=== PATIENT | male | born 1980 | race Caucasian/White ===

== ENCOUNTER 2021-02-23 16:37 | Emergency (ER) | payer MEDICAID, SELFPAY ==
[2021-02-23 17:28] VITALS: BP 164/95; PULSE 96; RESP 18; O2SAT 95; BMI 26.6
--- NOTE | 2021-02-23 18:08 | ED_ITS ---
HPI - Alcohol General Chief Complaint: ETOH/Substance Use Stated Complaint: detox Time Seen by Provider: 02/23/21 18:06 Source: patient Mode of arrival: ambulatory Limitations: other (agitated) History of Present Illness HPI narrative: hx of ETOH withdrawal seizures, can you just give me something to fucking stop these shakes. complaint: alcohol withdrawal Last drink: Hours (ago) (4) Amount of alcohol consumed: 2 nips Chronic alcohol use: Yes Previous visits for alcohol intoxication: Yes Recent trauma: No Associated symptoms: nausea and tremors Treatments prior to arrival: none Related Data Previous Rx's Medication Instructions Recorded chlordiazepoxide HCl See Rx Instructions .ROUTE 02/23/21 .COMPLEX PRN #30 cap magnesium oxide 400 mg PO DAILY #30 tab 02/23/21 Allergies Allergy/AdvReac Type Severity Reaction Status Date / Time morphine Allergy Unresponsiv Verified 02/23/21 17:34 e Review of Systems Review of Systems: Constitutional : No Weight loss, No Fever, pos Chills, No Fatigue, No Malaise ENT/Mouth : No sore throat, No Rhinorrhea Eyes: No Eye Pain, No Swelling, No Redness Cardiovascular : No Chest Pain, No SOB, No Dyspnea on Exertion, No Orthopnea, No Edema, No Palpitations Respiratory : No Cough, No Sputum, No Wheezing Gastrointestinal : pos Nausea, No Vomiting, No Diarrhea, No Constipation, No abdominal Pain, No Hematochezia, No Melena Genitourinary : No Dysuria, No Urinary Frequency, No Hematuria, Musculoskeletal : No joint pain, No Myalgias, No Joint Swelling Skin : No Skin Lesions, No rash Neuro : No Weakness, No Numbness, No Dizziness, No Headache, pos tremors Psych : No Anxiety/Panic, No Depression Heme/Lymph: No Bruising, No Bleeding,No Lymphadenopathy Endocrine : No Polyuria, No Polydipsia All other systems reviewed and are negative [facility] Past Medical History Attestation statement: The following information was validated with the patient. Medical History Alcohol abuse Alcohol withdrawal seizure Shoulder pain Social History Social History (Updated 02/23/21 @ 18:33 by Tameka Eason DO) Alcohol intake: current Patient Tobacco Use Status: Current someday Tobacco user Substance Use Type: Crack/Cocaine Advance Directives: No Advance Directives Information Provided: No Physical Exam Vital Signs: Vital Signs: Last Vital Signs Pulse 70 02/23/21 20:00 Resp 18 02/23/21 20:00 BP 157/96 H 02/23/21 19:09 Pulse Ox 100 02/23/21 20:00 Body Mass Index 26.6 Appearance: Alert. Oriented X3. Anxious and agitated, no acute distress. Initially no tremors when the patient was at the bedside alone but when I went t o see him he started shaking and talking loudly using profane terms. Eyes: Pupils equal, round and reactive to light. ENT: Pharynx mild dry mouth Neck: Normal inspection. Neck supple. CVS: Normal heart rate and rhythm. Pulses normal. Respiratory: No respiratory distress. Breath sounds normal. Abdomen: Soft and non-tender. Skin: Skin warm and dry. Normal skin color. Normal skin turgor. Extremities: No lower extremity edema. No calf ttp Neuro: Oriented X 3. No motor deficit. No sensory deficit. Course Course Course Narrative: HR 77 tolerating PO quite a bit of food actually, VS stable, tremors resolved currently asleep. notified by recovery coaches that there is room at [facility] tomorrow but no detox beds tonight, I did let the recovery coaches knows that I would prescribe a librium taper - patient was sound asleep and resting when he realized that we were not going to admit him after appropriate care and resuscitation he started to become agitated and intentionally shaking. eating crackers has no shakes when he brings the food to his mouth at all doing quite well when I went to talk to him he now states he his homeless and now needs a place to stay and doesn't want to leave. moveman aware at this time he is medically cleared MDM - Alcohol MDM Narrative Medical decision making narrative: 41 male with hx of ETOH abuse and withdrawals comes in with c/o tremor and worried he will have a seizure at this time will need labs, IVF< IV ativan and PO librium, discussed with recovery coaches as well for possible detox as he is interested in going to detox today. His tremors initially seemed not present when he was alone then when I went to the bedside they were present and he repeatedly said get me the fucking medications. Lab Data Result diagrams: 02/23/21 18:24 07/07/21 18:24 Labs: Lab Results 02/23/21 02/23/21 02/23/21 Range/Units 18:24 18:24 18:24 WBC 8.0 (4.8-10.8) X10*3/uL RBC 4.75 (4.60-5.80) X10*6/uL Hgb 14.8 (14.0-18.0) g/dl Hct 43.1 (42-52) % MCV 90.7 (80-98) fL MCH 31.2 (27.0-33.0) pg MCHC 34.3 (31.0-36.0) g/dl RDW 13.7 (11.0-16.0) % Plt Count 160 (160-400) X10*3/uL MPV 9.4 (9.4-12.4) fL Immature Gran % (Auto) 0.5 H (0.0-0.4) % Neut % (Auto) 78.5 H (45-73) % Lymph % (Auto) 14.3 L (20-40) % [place] % (Auto) 5.8 (2-11) % Eos % (Auto) 0.4 (0-4) % Baso % (Auto) 0.5 (0-2) % Lymph # (Auto) 1.1 L (1.2-4.9) X10*3/uL [place] # (Auto) 0.5 (0.1-1.2) X10*3/uL Eos # (Auto) 0.0 (0.0-0.4) X10*3/uL Baso # (Auto) 0.0 (0.0-0.2) X10*3/uL Abs Immat Gran (auto) 0.04 H (0.00-0.03) X10*3/uL Absolute Neuts (auto) 6.3 (2.0-8.3) X10*3/uL Absolute Nucleated RBC 0.000 (0.0-0.012) X10*3/uL Nucleated RBC % (auto) 0.0 (0.0-0.2) /100WBC Sodium 141 (135-145) mmol/L Potassium 4.0 (3.3-5.1) mmol/L Chloride 103 (96-108) mmol/L Carbon Dioxide 28 (22-29) mmol/L Anion Gap 14 (12-20) BUN 9 (9-16) mg/dL Creatinine 0.96 (0.5-1.4) mg/dL Estim Creat Clear Calc 100.2 Estimated GFR > 60 Random Glucose 95 (60-115) mg/dL Calcium 9.6 (8.4-10.2) mg/dL Magnesium 1.3 L* (1.6-2.6) mg/dL Total Bilirubin 0.7 (0.0-1.0) mg/dL Direct Bilirubin 0.3 (0.0-0.5) mg/dL AST 113 H (5-37) U/L ALT 108 H (0-40) U/L Alkaline Phosphatase 67 (39-117) U/L Total Protein 7.4 (6.5-8.0) g/dL Albumin 4.5 (3.5-5.0) g/dL Ethyl Alcohol mg/dL COVID-19 (IVANIA) (Negative) COVID-19 Clin Com 02/23/21 02/23/21 Range/Units 18:24 18:24 WBC (4.8-10.8) X10*3/uL RBC (4.60-5.80) X10*6/uL Hgb (14.0-18.0) g/dl Hct (42-52) % MCV (80-98) fL MCH (27.0-33.0) pg MCHC (31.0-36.0) g/dl RDW (11.0-16.0) % Plt Count (160-400) X10*3/uL MPV (9.4-12.4) fL Immature Gran % (Auto) (0.0-0.4) % Neut % (Auto) (45-73) % Lymph % (Auto) (20-40) % [place] % (Auto) (2-11) % Eos % (Auto) (0-4) % Baso % (Auto) (0-2) % Lymph # (Auto) (1.2-4.9) X10*3/uL [place] # (Auto) (0.1-1.2) X10*3/uL Eos # (Auto) (0.0-0.4) X10*3/uL Baso # (Auto) (0.0-0.2) X10*3/uL Abs Immat Gran (auto) (0.00-0.03) X10*3/uL Absolute Neuts (auto) (2.0-8.3) X10*3/uL Absolute Nucleated RBC (0.0-0.012) X10*3/uL Nucleated RBC % (auto) (0.0-0.2) /100WBC Sodium (135-145) mmol/L Potassium (3.3-5.1) mmol/L Chloride (96-108) mmol/L Carbon Dioxide (22-29) mmol/L Anion Gap (12-20) BUN (9-16) mg/dL Creatinine (0.5-1.4) mg/dL Estim Creat Clear Calc Estimated GFR Random Glucose (60-115) mg/dL Calcium (8.4-10.2) mg/dL Magnesium (1.6-2.6) mg/dL Total Bilirubin (0.0-1.0) mg/dL Direct Bilirubin (0.0-0.5) mg/dL AST (5-37) U/L ALT (0-40) U/L Alkaline Phosphatase (39-117) U/L Total Protein (6.5-8.0) g/dL Albumin (3.5-5.0) g/dL Ethyl Alcohol < 10 mg/dL COVID-19 (IVANIA) Negative (Negative) COVID-19 Clin Com See Note ECG Data Attestation: I personally reviewed and interpreted this ECG as follows: ECG interpretation date: 02/23/21 ECG interpretation time: 18:28 Interpretation: Rate: 81 Rhythm: NSR Ramer: left Normal P waves. Normal JAMEY. Normal QRS complex. ST T wave normal no DELORES artifact noted qTC: normal prior studies: no acute ischemia The study has been interpreted contemporaneously by me. . Discharge Plan Discharge Clinical Impression: Hypomagnesemia Alcohol withdrawal syndrome Qualifiers: Complication of substance-induced condition: uncomplicated Qualified Code(s): F10.230 - Alcohol dependence with withdrawal, uncomplicated Patient Disposition: Home, Self-Care Instructions: Alcohol Withdrawal (ED), Hypomagnesemia (ED) Additional Instructions: return to ED for any worsening symptoms or concerns please follow up with [facility] Prescriptions: New chlordiazepoxide HCl 25 mg capsule See Rx Instructions .ROUTE .COMPLEX PRN (Reason: alcohol withdrawal) Qty: 30 RF: 0 magnesium oxide 400 mg (241.3 mg magnesium) tablet 400 mg PO DAILY Qty: 30 RF: 0
--- NOTE | 2021-02-23 18:16 | ECG_ITS ---
Test Reason : ALCOHOL ABUSE Blood Pressure : / mmHG Vent. Rate : 081 BPM Atrial Rate : 081 BPM P-R Int : 184 ms QRS Dur : 092 ms QT Int : 360 ms P-R-T Axes : 038 -13 026 degrees QTc Int : 418 ms Normal sinus rhythm Normal ECG No previous ECGs available Referred By: Tameka Eason Electronically Signed By:JHONATAN SEN
[2021-02-23] MEDS: 0.9 % Sodium Chloride 1,000 ML 999 ML IVCONT (18:32)
[2021-02-23] MEDS: LORazepam 2 MG/ML VIAL IVPUSH (18:32)
[2021-02-23] MEDS: Thiamine HCL 100 MG TABLET PO (18:32)
[2021-02-23 18:33] LABS: MANUAL DIFF FLAG NO
[2021-02-23 18:35] LABS: Basophils Percent Auto 0.5 % (0-2); Eosinophils Percent Auto 0.4 % (0-4); Hematocrit 43.1 % (42-52); Hemoglobin 14.8 g/dl (14.0-18.0); Imm Gran Abs Auto 0.04 X10*3/uL (0.00-0.03); Imm Gran Pct Auto 0.5 % (0.0-0.4); Lymphocytes Absolute Auto 1.1 X10*3/uL (1.2-4.9); Lymphocytes Percent Auto 14.3 % (20-40); Mean Corpuscular HGB Conc 34.3 g/dl (31.0-36.0); Mean Corpuscular Hemoglobin 31.2 pg (27.0-33.0); Mean Corpuscular Volume 90.7 fL (80-98); Mean Platelet Volume 9.4 fL (9.4-12.4); Monocytes Absolute Auto 0.5 X10*3/uL (0.1-1.2); Monocytes Percent Auto 5.8 % (2-11); Neutrophils Absolute Auto 6.3 X10*3/uL (2.0-8.3); Neutrophils Percent Auto 78.5 % (45-73); Platelet Count 160 X10*3/uL (160-400); Red Blood Count 4.75 X10*6/uL (4.60-5.80); Red Cell Distribution Width 13.7 % (11.0-16.0)
[2021-02-23] MEDS: chlordiazePOXIDE HCl 25 MG CAPSULE 50 MG PO (18:36)
[2021-02-23 18:52] LABS: COVID-19 Test Negative (Negative)
[2021-02-23 19:00] LABS: Anion Gap 14 (12-20); Blood Urea Nitrogen 9 mg/dL (9-16); Calcium 9.6 mg/dL (8.4-10.2); Carbon Dioxide 28 mmol/L (22-29); Chloride 103 mmol/L (96-108); Creatinine Clr Calc Pharmacy 100.2; Estimated Glomerular Filt Rate > 60; Ethanol < 10 mg/dL; Glucose Random 95 mg/dL (60-115); Sodium 141 mmol/L (135-145)
[2021-02-23 19:09] VITALS: BP 157/96; PULSE 96; RESP 18; O2SAT 99
[2021-02-23 19:09] LABS: Alanine Aminotransferase 108 U/L (0-40); Albumin Level 4.5 g/dL (3.5-5.0); Alkaline Phosphatase 67 U/L (39-117); Aspartate Amino Transferase 113 U/L (5-37); Bilirubin Direct 0.3 mg/dL (0.0-0.5); Bilirubin Total 0.7 mg/dL (0.0-1.0); Magnesium 1.3 mg/dL (1.6-2.6); Total Protein 7.4 g/dL (6.5-8.0)
[2021-02-23] MEDS: Magnesium Sulfate/H2O 2 GM/50 ML PIGGYBACK IV (19:31)
[2021-02-23 20:00] VITALS: PULSE 70; RESP 18; O2SAT 100
--- NOTE | 2021-02-23 20:16 | MHC.RECOVSUP ---
? Reason for consult Recovery Support o Current location: ED16 o Identified substance use concern: Alcohol - Withdrawal - Seeking ATS (detox) - Support ? Intervention: o Community resources provided o Harm reduction discussion ? Plan: o Follow up tomorrow o Patient to follow up with [facility] after discharge ? Additional information: Patient interested in intermediate school teacher program.. Patient is not medically.. Patient would be followed up on tomorrow..
--- NOTE | 2021-02-23 20:46 | MHC.RECOVSUP ---
Patient is medically but no Detox bed available.. Patient was given resources to go to tomorrow to assists Patient tomorrow in finding a bed.
[2021-02-23 21:10] VITALS: BP 138/82; PULSE 81; RESP 18; O2SAT 100
== END 2021-02-23 21:34 | disposition home or self-care (01) ==
PROVIDERS: Emergency Provider Emergency Medicine; PCP Family Medicine
DX: F10.230 Alcohol dependence with withdrawal, uncomplicated (principal); Y90.0 Blood alcohol level of less than 20 mg/100 ml; E83.42 Hypomagnesemia; Z59.0 Homelessness; Z20.822 Contact with and (suspected) exposure to COVID-19
CPT/HCPCS: 36415; 80048; 80076; 82077; 83735; 85025; 87635; 93005; 96361; 96365; 96366; 96375; 99284; 99285; J2060; J3475

== ENCOUNTER 2025-05-30 15:23 | Emergency (ER) | payer MEDICAID, SELFPAY ==
--- NOTE | ~2025-05-30 | XR_ITS ---
CLINICAL HISTORY: pain 3 views left humerus: Comparison: None Findings: No fractures or dislocations. No significant arthritic change No radiopaque foreign body Normal visualized left chest Impression: Unremarkable left shoulder. No signs of acute skeletal trauma This document has been electronically signed by: Elvis Red MD on 05/30/2025 16:54:53
--- NOTE | ~2025-05-30 | XR_ITS ---
CLINICAL HISTORY: pain 2 views left forearm Comparison: None Findings: No fractures or dislocations No joint effusion No significant arthritic change No radiopaque foreign body Impression: Normal left forearm. This document has been electronically signed by: Elvis Red MD on 05/30/2025 16:50:50
[2025-05-30 15:28] VITALS: BP 128/83; PULSE 91; RESP 18; TEMP 36.6; O2SAT 95; BMI 25.1
--- NOTE | 2025-05-30 15:28 | ED_ITS ---
HPI - General Adult General Chief complaint: Extremity Injury, Upper Stated complaint: left arm and shoulder pain Time Seen by Provider: 05/30/25 16:24 Source: patient Mode of arrival: ambulatory Limitations: no limitations History of Present Illness ED Provider: Patria Galindo PA-C HPI narrative: Patient is a 45 year old assigned male at with a history of alcohol use / abuse presenting to the emergency department today with left shoulder and bicep pain. Patient states that he has been having issues with his left shoulder / arm for awhile and he wants to get an MRI to look at the muscles. Patient denies any other complaints at this time. Onset (ago): week(s) (2) Location: left and upper extremity Related Data Previous Rx's ?Medication ?Instructions ?Recorded chlordiazepoxide HCl 25 mg capsule See Rx Instructions .Route 02/23/21 .COMPLEX PRN alcohol withdrawal #30 caps magnesium oxide 400 mg (241.3 mg 400 mg PO DAILY #30 t abs 02/23/21 magnesium) tablet cyclobenzaprine 5 mg tablet 5 mg PO TID PRN shoulder p ain 7 05/30/25 days #21 tabs prednisone 20 mg tablet 40 mg (2 x 20 mg) PO DAILY C OPD 05/30/25 exacerbation 5 days #10 tabs Allergies Allergy/AdvReac Type Severity Reaction Status Date / Time morphine Allergy Unresponsiv Verified 05/30/25 15:30 e Review of Systems Constitutional: Constitutional: Reports as per HPI Eyes: Eyes: Reports as per HPI ENT: Reports as per HPI Cardiovascular: Cardiovascular: Reports as per HPI Respiratory: Respiratory: Reports as per HPI Gastrointestinal: Gastrointestinal: Reports as per HPI Genitourinary: Genitourinary: Reports as per HPI Musculoskeletal: Musculoskeletal: Reports as per HPI Integumentary/Breasts: Skin/Breast: Reports as per HPI Neurologic: Reports as per HPI Psychiatric: Psychiatric: Reports as per HPI Endocrine: Endocrine: Reports as per HPI Hematologic/Lymphatic: Hematologic/Lymphatic: Reports as per HPI Allergic/Immunologic: Allergic/Immunologic: Reports as per HPI PMF Past Medical History Attestation statement: The following information was validated with the patient. Source: old records reviewed and nursing notes reviewed Medical History Alcohol withdrawal seizure Alcohol abuse Shoulder pain Social History Social History Alcohol intake: current Patient Tobacco Use Status: Current someday Tobacco user Substance Use Type: Crack/Cocaine Advance Directives: No Advance Directives Information Provided: Yes Do you have a plan to hurt others: No Plan Physical Exam ED Vital Signs: Vital Signs - 24 hr 05/30/25 15:28 05/30/25 16:57 Temperature 97.8 F 97.8 F Pulse Rate 91 91 Respiratory Rate 18 18 Blood Pressure 128/83 128/83 Pulse Oximetry 95 95 Oxygen Delivery Method Room Air Room Air BMI result Body Mass Index 25.1 Const General: cooperative, no acute distress, alert and awake Nutritional Appearance: well nourished Orientation/consciousness: patient oriented x3 HENMT Head: Yes normal to inspection and Yes atraumatic Ears: hearing grossly normal bilaterally and external ears normal General nose exam: Normal external nose present, no nasal discharge noted and no epistaxis Face and sinus: Yes normal facial exam, No abrasion and No laceration Mouth: Normal oral and palatal mucosa present, no drooling and no muffled voice Eyes General: appearance normal, both eyes and all related structures Periorbital: periorbital findings normal Eyelids: Yes eyelids normal Conjunctivae: conjunctivae normal Pupils: Equal, round and reactive pupils present EOM: EOMs intact bilaterally Neck Neck: Yes normal visual inspection and Yes full ROM Resp Effort & Inspection: normal respiratory effort and able to speak in complete sentences Neuro General: patient oriented x3, moves all extremities and CN's II-XI intact bilaterally Cranial nerves: Yes Equal, round and reactive pupils present Cognition (Neuro): normal cognition Extrem General: Yes normal to inspection, Yes full ROM and Yes capillary refill normal Psych Appearance: grossly normal Mental Status: mental status grossly normal Affect: normal affect Attitude: cooperative Thought process: Normal thought process present Thought content: Normal thought content present Insight: Good insight present (Psych) Course Course Course Narrative: This is a Rapid Medical Examination (RME) performed by Darshan Shields PA-C in triage. Full HPI, ROS, assessment and treatment plan per primary provider in the Main ED. Hx: 45 yo F here for eval of LUE pain x weeks. hx of right shoulder dislocation 5 yrs ago, since this time has been favoring his LUE. he believes his bicep/tricep/shoulder blade have completely torn. states his arm is not connected. states all of his nerves are exposed. PE/vitals: odor of etoh to breath. FROM intact to LUE. no deformities. Plan: imaging Medications Administered Discontinued Medications Generic Name Dose Route Start Last Admin Trade Name Eun PRN Reason Stop Dose Admin Cyclobenzaprine HCl 5 mg 05/30/25 16:34 05/30/25 16:46 Cyclobenzaprine Hcl 5 Mg Tablet PO 05/30/25 16:35 5 mg ONCE ONE Administration Ketorolac Tromethamine 15 mg 05/30/25 16:34 05/30/25 16:47 Ketorolac Tromethamine 15 Mg/Ml Vial IM 05/30/25 16:35 15 mg ONCE ONE Administration Prednisone 20 mg 05/30/25 16:34 05/30/25 16:46 Prednisone 20 Mg Tablet PO 05/30/25 16:35 20 mg ONCE ONE Administration Medical Decision Making Medical Decision Making MDM Narrative: Patient is a 45 year old assigned male at with a history of alcohol use / abuse presenting to the emergency department today with left shoulder and bicep pain. Patient's physical exam was as noted in the physical exam portion of this note unremarkable. Patient's left forearm and shoulder x-rays showed no acute process. I am suspicious the patient has a rotator cuff vs. bicep tendon injury that is chronic in nature and he is having an acute exacerbation of it. I explained to the patient that I cannot order an emergent MRI for a non emergent issue such as his shoulder / bicep pain. I explained my physical exam findings as well as all test results to the patient. I answered all questions asked by the patient. I stressed the importance of the patient taking his medication as directed (either prescribed or as the over the counter packaging recommends). I stressed the importance of the patient following up with his primary care provider and the orthopedic team. I stressed the importance of the patient returning to the emergency department immediately if his symptoms were to worsen or if he were to develop any dizziness, shortness of breath, difficulty breathing, chest pain, blurry vision, loss of vision, nausea, vomiting, abdominal pain, fever, chills, back pain, or any other complaints. Patient verbalized agreement and understanding with this treatment plan and discharge. Differential Diagnosis Differential Diagnoses: The differential diagnosis associated with the presentation includes LUE pain LUE strain LUE Sprain Rotator cuff injury Bicep tendon injury Admission/Observation Consideration of admission/observation: Escalation of care including admission/observation considered Patient would have been admitted to the hospital had his work up had any findings where hospital admission was appropriate and his clinical presentation warranted hospital admission. Independent Interpretation I performed an independent interpretation of an: Plain X-Ray Interpretation: My interpretation is in agreement with the radiologist's impression of these imaging studies. Reason for Exam: pain CLINICAL HISTORY: pain 3 views left humerus: Comparison: None Findings: No fractures or dislocations. No significant arthritic change No radiopaque foreign body Normal visualized left chest Impression: Unremarkable left shoulder. No signs of acute skeletal trauma This document has been electronically signed by: Elvis Red MD on 05/30/2025 16:54:53 Dictated By: Elvis Red MD Signed By: Electronically signed by Elvis Red MD 05/30/25 3608 Reason for Exam: pain CLINICAL HISTORY: pain 2 views left forearm Comparison: None Findings: No fractures or dislocations No joint effusion No significant arthritic change No radiopaque foreign body Impression: Normal left forearm. This document has been electronically signed by: Elvis Red MD on 05/30/2025 16:50:50 Dictated By: Elvis Red MD Signed By: Electronically signed by Elvis Red MD 05/30/25 0432 Radiology Impression Discussion of test interpretation with radiology: I have reviewed the radiologist's reading. Prescription Management I considered prescription management with: Pain Medication (patient prescribed a muscle relaxer) Discharge Plan Discharge Clinical Impression: Left shoulder pain Patient Disposition: Home, Self-Care Instructions: Shoulder Pain (ED) Additional Instructions: Your left upper extremity x-rays are negative. You need further imaging to evaluate the muscles of the left shoulder / upper arm. To get these done, you must follow up with the orthopedic team and your primary care provider. IF you are prescribed home medications and/or you are taking over the counter medications at home - it is very important you continue to do so as prescribed / directed unless told otherwise. Follow up with a primary care provider. Return to the emergency department immediately if your symptoms worsen or if you develop any numbness, tingling, dizziness, shortness of breath, difficulty breathing, chest pain, blurry vision, loss of vision, nausea, vomiting, abdominal pain, fever, chills, back pain, or any other complaints. If you do not have a primary care provider - call any of the below numbers to establish and follow up with a primary care provider. [facility] Primary Care ([place]) [phone] [place] [address], [address] [facility] Primary Care ([address] [place]) [phone] [place] [address], [address] [facility], [address] [facility] Primary Care ([address] [place]) [phone] [place] [address], [address] [facility], [address] [facility] Primary Care ([place]) [phone] [place] [address], [address] [facility], [address] [facility] Family Medicine [phone] [address] [facility], [address] Please see the information below about our Patient Portal. If you are not yet enrolled in the [facility] Patient Portal, you will receive an enrollment email invitation following your visit to any [facility] care setting. You may also self-enroll in the Patient Portal by visiting our website: [email or web address] The following information is required to access the Patient Portal: - Your [facility] Medical Record Number - Your personal home email address (must match what is in your electronic medical record, Registration staff can assist with this) - Name - Date of Capabilities of the Patient Portal: - Message some providers - View upcoming appointments - Access your health summary, medical history, and visit history - View current conditions and allergies - View procedure and lab results - View your medications, including guidelines, side effects, and precautions - Complete pre-appointment questionnaires requested by your provider - Ready summary reports of your office visits and procedures To access the Patient Portal Mobile Lena, follow these directions: - Search [employer] in the Lena Store or [employer] Store - Download the Lena - Search for [facility] - Enter your login/password Prescriptions: New cyclobenzaprine 5 mg tablet 5 mg PO TID PRN (Reason: shoulder pain) 7 Days Qty: 21 0RF prednisone 20 mg tablet 40 mg PO DAILY 5 Days Qty: 10 0RF No Action chlordiazepoxide HCl 25 mg capsule See Rx Instructions .ROUTE .COMPLEX PRN (Reason: alcohol withdrawal) Qty: 30 0RF Rx Instructions: Dose: 25mg Day 1: 50 mg every 6 hours as needed for symptom control of alcohol withdrawal; days 2 to 5: 25 mg every 6 hours as needed for alcohol withdrawal magnesium oxide 400 mg (241.3 mg magnesium) tablet 400 mg PO DAILY Qty: 30 0RF Referrals: [facility] Orthopedic Surgeons [Provider Group] Referral Note: Call to establish and follow up with the orthopedic team for your left upper extremity pain. Interventions: ED Discharge Assessment Last Done: 05/30/25 16:57 Discharge Date/Time: 05/30/25 16:58 Print Language: Kyrgyz
--- OUTSIDE RECORDS SUMMARY | 2025-05-30 16:46 | XMS_ITS | Encounter Summary ---
Author Organization [facility]ly [facility] Address [address] [facility] [address] [place] [phone] Phone Care Team Providers Care Buffing Turner And Counter Name Role Phone Loli Maldonado MD Primary Care Provider Loli Maldonado MD Primary Care Provider Loli Maldonado MD Primary Care Provider Loli Maldonado MD Primary Care Provider Pcp, Unknown Primary Care Provider Unavailabl e Pcp, Unknown Primary Care Provider Unavailabl e Encounter Details Date Type Department Care Team (Late st Contact Info) Description 10/28/2019 Ancillary Orders [facility], X-Ray - [address] [place] [address] Loli Maldonado MD [address] [facility] [place] [address] [email or web address] Left eye injury, initial encounter; Injury, head, initial encounter Social History Tobacco Use Types Packs/Day Years Used Date Smoking Tobacco: Every Day Cigarettes Smokeless Tobacco: Never Alcohol Use Standard Drinks/Week Comments Not Currently 0 (1 standard drink = 0.6 oz pur e alcohol) Sex and Gender Information Value Date Recorded Sex Assigned at Male 10/24/2017 11:06 AM EST Legal Sex Male 9:24 PM EDT Gender Identity Male 10/24/2017 11:06 AM EST Sexual Orientation Bisexual 10/24/2017 11 :06 AM EST documented as of this encounter Plan of Treatment Not on file documented as of this encounter Results * XR SKULL COMPLETE 4 OR MORE VIEWS (10/28/2019 3:53 PM EDT) Anatomical Region Laterality Modality Head Radiographic Ness ging 10/28/2019 4:00 PM EDT Impressions 10/28/2019 4:03 PM EDT The previous documented maxillofacial fractures and sinus disease are not identified. POS - [id number] Narrative 10/28/2019 4:03 PM EDT HISTORY: As above. COMPARISON: CT 10/19/2019. SKULL RADIOGRAPH FINDINGS: Four views obtained. The left orbital floor, medial orbital wall and nasal bone fractures are poorly identified on radiographs. No definite new fractures. No bone lesions. No paranasal sinus air-fluid levels. Moderate left nasal deviation. Mastoids are clear. No soft tissue swelling. Procedure Note Andres Schaffer MD - 10/28/2019 HISTORY: As above. COMPARISON: CT 10/19/2019. SKULL RADIOGRAPH FINDINGS: Four views obtained. The left orbital floor, medial orbital wall and nasal bone fractures arepoorly identified on radiographs. No definite new fractures. No bonelesions. No paranasal sinus air-fluid levels. Moderate left nasaldeviation. Mastoids are clear. No soft tissue swelling. IMPRESSION: The previous documented maxillofacial fractures and sinus disease are notidentified. POS - [id number] us Loli Maldonado MD IMG XR HEAD AND SHUNT SERIES Final Result * XR FACIAL BONES 3 OR MORE VIEWS (10/28/2019 3:52 PM EDT) Anatomical Region Laterality Modality Face Radiographic Ness ging 10/28/2019 4:03 PM EDT Addenda Addendum by Andres Schaffer MD on 10/31/2019 10:11 AM EDT HISTORY: As above. COMPARISON: CT head and CT facial exams 10/19/2019. FACIAL BONE RADIOGRAPH FINDINGS: Seven views obtained. Poor definition of the left medial orbital wall due to a known fracture. The left orbital floor fracture is not identified. There is partial left maxillary sinus fluid opacification likely due to pre-existing sinus disease as well as hemorrhage. >>> The <<< nasal bone fracture is not identified. Mastoids are clear. No destructive bone lesions. IMPRESSION: The previously documented >>> maxillofacial <<< fractures are poorly identified. See above. POS - [id number] Edited by: Merle Tovar on 10/30/2019 7:30 PM Impressions 10/28/2019 4:07 PM EDT The previously documented maximal facial fractures are poorly identified. See above. POS - [id number] Narrative 10/28/2019 4:07 PM EDT HISTORY: As above. COMPARISON: CT head and CT facial exam 10/19/2019. FACIAL BONE RADIOGRAPH FINDINGS: Seven views obtained. Poor definition the left medial orbital wall due to a known fracture. The left orbital floor fracture is not identified. There is partial left maxillary sinus fluid opacification likely due to pre- existing sinus disease as well as hemorrhage. No nasal bone fracture is not identified. Mastoids are clear. No destructive bone lesions. Procedure Note Andres Schaffer MD - 10/28/2019 HISTORY: As above. COMPARISON: CT head and CT facial exam 10/19/2019. FACIAL BONE RADIOGRAPH FINDINGS: Seven views obtained. Poor definition the left medial orbital wall due to a known fracture. Theleft orbital floor fracture is not identified. There is partial leftmaxillary sinus fluid opacification likely due to pre-existing sinusdisease as well as hemorrhage. No nasal bone fracture is not identified.Mastoids are clear. No destructive bone lesions. IMPRESSION: The previously documented maximal facial fractures are poorly identified.See above. POS - [id number] us Loli Maldonado MD IMG XR HEAD AND SHUNT SERIES Edited Result - Final documented in this encounter Visit Diagnoses Diagnosis Left eye injury, initial encounter Injury, head, initial encounter Left eye injury, initial encounter Injury, head, initial encounter Left eye injury, initial encounter Injury, head, initial encounter documented in this encounter Additional Health Concerns Infection Onset Date Last Indicated Resolved Time MRSA Comment:Import to add expiration date of 11/05/2021 per Infection Control as part of historical infection status reconciliation 02/05/2008 02/05/2008 11/06/19 1:21 AM EDT CoV-Risk 12/16/2019 12/16/2019 12/30/2019 1:25 AM EDT CoV-Risk 01/05/2020 01/05/2020 01/19/2020 1:24 AM EDT CoV-Risk 07/09/2020 07/09/2020 07/23/2020 1:24 AM EST CoV-Exposed Comment:Recent close contact 07/27/2020 07/27/2020 08/10/2020 1:32 AM EST CoV-Risk 04/28/2021 04/28/2021 05/08/2021 1:23 AM EDT COVID-19 08/01/2021 08/01/2021 08/22/2021 1:23 AM EST CoV-Exposed 12/14/2021 12/16/2021 12/17/2021 4:30 PM EDT CoV-Exposed 12/16/2021 12/17/2021 12/28/2021 1:22 AM EDT documented as of this encounter Care Teams Buffing Turner And Counter Relationship Specialty Start Date End Date Loli Maldonado MD [address] [facility] [place] [address] [email or web address] PCP - General Family Medicine 03/06/19 01/21/22 Loli Maldonado MD [address] [place] [address] PCP - General Family Medicine 01/22/22 04/03/22 Loli Maldonado MD [address] [place] [address] [email or web address] PCP - General Family Medicine 04/04/22 01/28/23 Loli Maldonado MD [address] [place] [address] [email or web address] PCP - General Family Medicine 01/29/23 11/20/23 Pcp, Unknown PCP - General 11/21/23 02/14/24 Pcp, Unknown PCP - General 02/15/24 documented as of this encounter Additional Source Comments The information contained in this document represents components of the legal health record. It is not the complete legal health record.[facility]
--- OUTSIDE RECORDS SUMMARY | 2025-05-30 16:46 | XMS_ITS | Encounter Summary ---
Author Organization [facility] Address [address] [facility] [address] [place] [address] Phone Care Team Providers Care Bond Writer Name Role Phone Loli Maldonado MD Primary Care Provider Loli Maldonado MD Primary Care Provider [phone] Loli Maldonado MD Primary Care Provider Loli Maldonado MD Primary Care Provider Pcp, Unknown Primary Care Provider Unavailabl e Pcp, Unknown Primary Care Provider Unavailabl e Encounter Details Date Type Department Care Team (Latest Contact Info) Description 06/28/2021 Transcribe Orders [facility] Specimen Processing [address] [place] [address] Jose C Valverde MD [address] [facility], [address] [place] [address] [email or web address] Encounter for health examination of prisoner (Primary Dx) Social History Tobacco Use Types Packs/Day Years Used Date Smoking Tobacco: Every Day Cigarettes Smokeless Tobacco: Never Alcohol Use Standard Drinks/Week Comments Yes 0 (1 standard drink = 0.6 oz pur e alcohol) 10 - 12 nips / day Sex and Gender Information Value Date Recorded Sex Assigned at Male 10/24/2017 11:06 AM EST Legal Sex Male 9:24 PM EDT Gender Identity Male 10/24/2017 11:06 AM EST Sexual Orientation Bisexual 10/24/2017 11 :06 AM EST documented as of this encounter Plan of Treatment Not on file documented as of this encounter Procedures Procedure Name Priority Date/Time Associated Diagnosis Comments CBC Routine 06/28/2021 9:21 AM EST Encounter for health examination of prisoner documented in this encounter Results * CBC (06/28/2021 9:21 AM EST) WBC 7.79 4.00 - 11.00 K/uL [facility] RBC 4.68 4.23 - 5.82 M/uL [facility] HGB 14.7 13.4 - 17.5 g/dL [facility] HCT 43.3 37.0 - 51.0 % [facility] PLT 376 140 - 430 K/uL [facility] MCV 92.5 78.0 - 97.0 fL [facility] MCH 31.4 25.0 - 33.0 pg [facility] MCHC 33.9 32.0 - 36.0 g/dL [facility] RDW 13.5 11.0 - 15.0 % [facility] MPV 10.1 8.4 - 12.8 fl [facility] NRBC 0.00 0 /100 WBCs [facility] ABSOLUTE NRBC 0.00 0 K/uL [facility] Blood 06/28/2021 9:21 AM EST 06/28/2021 11:01 AM EST us Jose C Valverde MD LAB BLOOD ORDERABLES Final Result Performing Organization Address City/State/[facility] Co de Phone Number [address] [address] documented in this encounter Visit Diagnoses Diagnosis Encounter for health examination of prisoner- Primary documented in this encounter Additional Health Concerns Infection Onset Date Last Indicated Resolved Time MRSA Comment:Import to add expiration date of 11/05/2021 per Infection Control as part of historical infection status reconciliation 02/05/2008 02/05/2008 11/06/19 1:21 AM EDT COVID-19 08/01/2021 08/01/2021 08/22/2021 1:23 AM EST CoV-Exposed 12/14/2021 12/16/2021 12/17/2021 4:30 PM EDT CoV-Exposed 12/16/2021 12/17/2021 12/28/2021 1:22 AM EDT documented as of this encounter Care Teams Bond Writer Relationship Specialty Start Date End Date Loli Maldonado MD [address] [place] [address] PCP - General Family Medicine 03/06/19 01/21/22 Loli Maldonado MD [address] [place] [address] PCP - General Family Medicine 01/22/22 04/03/22 Loli Maldonado MD [address] [place] [address] PCP - General Family Medicine 04/04/22 01/28/23 Loli Maldonado MD [address] [place] [address] PCP - General Family Medicine 01/29/23 11/20/23 Pcp, Unknown PCP - General 11/21/23 02/14/24 Pcp, Unknown PCP - General 02/15/24 documented as of this encounter Additional Source Comments The information contained in this document represents components of the legal health record. It is not the complete legal health record.[facility]
--- OUTSIDE RECORDS SUMMARY | 2025-05-30 16:46 | XMS_ITS | Encounter Summary ---
Author Organization [facility] Address [address] [facility] [address] [place] [address] Phone Care Team Providers Care Hard Candy Batch Mixer Name Role Phone Loli Maldonado MD Primary Care Provider [phone] Loli Maldonado MD Primary Care Provider [phone] Pcp, Unknown Primary Care Provider Unavailabl e Pcp, Unknown Primary Care Provider Unavailabl e Encounter Details Date Type Department Care Team (Late st Contact Info) Description 06/18/2022 Procedure Pass [facility], Ct Scan - [facility] [address] [place] [address] Social History Tobacco Use Types Packs/Day Years [...] AM EST documented as of this encounter Functional Status * Calculated C-SSRS Risk Score (Lifetime/Recent) Answer Date of Assessment Author No Risk Indicated 06/18/2022 8:20 PM EDT Leona Flores RN * [place] Suicide Severity Rating Scale (Screener/Recent Self-Report) Question Answer Date of Assessment Author 1. Wish to be (Past 1 Month) No 022 8:20 PM EDT Leona Flores, SEMAJ 2. Non-Specific Active Suici kamlesh Thoughts (Past 1 Month) No 06/18/2022 8:20 PM EDT Jeet Flores, RN 6. Suicidal Behavior (Lifetime) No 8:20 PM EDT Leona Flores, RN documented as of this encounter Plan of Treatment Not on file documented as of this encounter Visit Diagnoses Not on filedocumented in this encounter Care Teams Hard Candy Batch Mixer Relationship Specialty Start Date End Date Loli Maldonado MD [address] [place] [address] PCP - General Family Medicine 04/04/22 01/28/23 Loli Maldonado MD [address] [place] [address] PCP - General Family Medicine 01/29/23 11/20/23 Pcp, Unknown PCP - General 11/21/23 02/14/24 Pcp, Unknown PCP - General 02/15/24 documented as of this encounter Additional Source Comments The information contained in this document represents components of the legal health record. It is not the complete legal health record.[facility]
--- OUTSIDE RECORDS SUMMARY | 2025-05-30 16:46 | XMS_ITS | Encounter Summary ---
Author Organization [facility] Address [address] [facility] [address] [place] [address] Phone Care Team Providers Care Avionics Electronics Technician Name Role Phone Dwight, [place] MD Primary Care Provi sunny Unknown, Unknown Primary Care Provider Loli Ruiz MD Primary Care Provider Loli Maldonado MD Primary Care Provider Loli Maldonado MD Primary Care Provider Loli Maldonado MD Primary Care Provider [phone] Pcp, Unknown Primary Care Provider Unavailabl e Pcp, Unknown Primary Care Provider Unavailabl e Encounter Details Date Type Department Care Team (Late st Contact Info) Description 09/26/2017 Procedure Pass [facility] Endoscopy Admitting Dept Virtual Department [address] [place] [address] Social History Tobacco Use Types Packs/Day Years [...] Diagnoses Not on filedocumented in this encounter Additional Health Concerns Infection [...] documented as of this encounter Care Teams Avionics Electronics Technician Relationship Specialty Start Date End Date Little Dietrich MD [address] [place] [address] PCP - General 06/05/17 11/20/17 Unknown, Unknown, [address] [place] [address] PCP - General 11/21/17 03/05/19 Loli Maldonado MD 70 [place] [address] [email or web address] PCP - General Family Medicine 03/06/19 01/21/22 Loli Maldonado MD [address] [place] [address] PCP - General Family Medicine 01/22/22 04/03/22 Loli Maldonado MD [address] [place] [address] [email or web address] PCP - General Family Medicine 04/04/22 01/28/23 Loli Maldonado MD 70 [place] [address] PCP - General Family Medicine 01/29/23 11/20/23 Pcp, Unknown PCP - General 11/21/23 02/14/24 Pcp, Unknown PCP - General 02/15/24 documented as of this encounter Additional Source Comments The information contained in this document represents components of the legal health record. It is not the complete legal health record.[facility]
--- OUTSIDE RECORDS SUMMARY | 2025-05-30 16:46 | XMS_ITS | Encounter Summary ---
Author Organization [facility] Address [address] [facility] [address] [place] [address] Phone Care Team Providers Care Phonograph Needle Tip Maker Name Role Phone Loli Maldonado MD Primary Care Provider Loli Maldonado MD Primary Care Provider Loli Maldonado MD Primary Care Provider Loli Maldonado MD Primary Care Provider Pcp, Unknown Primary Care Provider Unavailabl e Pcp, Unknown Primary Care Provider Unavailabl e Reason for Referral * Hospital - Outpatient - Closed Specialty Diagnoses / Procedures Referred By Neyda tianjero Referred To Contact Diagnoses Bradycardia Procedures Stress Test Exercise Loli Maldonado MD Phone: tel: fax: [email or web address] Referral ID Status Reason Start Date Expiration Date Visits Re quested Visits Authorized [id number] Closed 09/14/2020 09/14/2021 1 1 Encounter Details Date Type Department Care Team ([facility] st Contact Info) Description 09/14/2020 Ancillary Orders Virtual Department [address] [place] [address] Loli Maldonado MD 70 [place] [address] Bradycardia Social History Tobacco Use Types Packs/Day Years [...] documented as of this encounter Results * Holter Monitor 24 Hours (10/07/2020 3:31 PM EST) Total Beats 129,647 [facility] Ventricular Ectopy Total Beats 653 [facility] Ventricular Ectopy Single Beats 633 [facility] Ventricular Pair 1 [facility] Ventricular Runs 0 [facility] Supraventricular Total Beats 59 [facility] Supraventricular Ectopic Single Beats 56 [facility] Supraventricular Runs 1 [facility] Supraventricular Longest Run 3 [facility] Longest Supraventricular Run Rate 144 BPM [facility] Fastest Supraventricular Run Rate 144 BPM [facility] PHS CV HOLTER SUPRAVENTRICULAR FASTEST RUN 3 [facility] Mean Heart Rate 93 BPM [facility] Maximum Heart Rate 149 BPM P [facility] Minimum Heart Rate 68 BPM P [facility] Longest RR 1.3 S [facility] Anatomical Region Laterality Modality Heart Other 10/06/2020 11:4 8 AM EST 10/07/2020 3:06 PM EST Narrative 10/08/2020 6:35 PM EST This 24-hour Holter monitor was ordered for the indication of bradycardia. The predominant rhythm was sinus rhythm. Minimum heart rate 68 bpm Maximum heart rate 149 bpm Average heart rate 93 bpm There was no documented evidence of atrial fibrillation. There were no documented pauses >2.5 seconds in duration. There were rare PVCs. There were rare PACs. The patient did not provide a diary of symptoms for correlation. Conclusions: 1. Normal 24-hour Holter monitor. 2. There were no significant pauses or episodes of bradycardia. Holter Monitor Main Form Hookup date: 10/06/2020 Scan date: 10/07/2020 Start time: 11:48 Analysis time: 24 hr The predominant rhythm is sinus rhythm. Mean HR: 93 bpm Max HR: at 21:19 on 10/06/2020 149 bpm Min HR: at 02:51 on 10/07/2020 68 bpm Ventricular ectopic beats - total: 653 Ventricular ectopic beats - singles: 633 Ventricular ectopic beats - pairs: 1 Ventricular ectopic beats - runs: 0 Supraventricular ectopic beats - total: 59 Supraventricular ectopic beats - singles: 56 Supraventricular ectopic beats - runs: 1 The longest supraventricular run was 3 beats at 144 bpm. The fastest supraventricular run was 3 beats at 144 bpm. Longest R-R interval at 02:49 on .3 sec us Loli Maldonado MD CV CARDIAC SERVICES ORDERABL ES Final Result * Stress Test Exercise (10/06/2020 12:13 PM EST) Max BP Systolic 170 mmHg [facility] Max BP Diastolic 86 mmHg [facility] Max HR 155 BPM [facility] Resting HR 90 BPM [facility] Resting BP Systolic 140 mmHg [facility] Resting BP Diastolic 90 mmHg [facility] Peak METS 9.9 METS [facility] Peak HR 155 BPM [facility] Anatomical Region Laterality Modality Heart Other 10/06/2020 11:1 9 AM EST 10/06/2020 12:11 PM EST Narrative 10/06/2020 3:30 PM EST Response to Stress The patient exercised for minutes seconds, achieving 9.9 METS at peak exercise. Baseline blood pressure was 140/90 mmHg, and baseline heart rate was 90 bpm. The patient achieved a peak heart rate of 155 bpm, which is% of their maximum predicted heart rate. REPORT- Pt exercised for 7:43 min on a MARISOL protocol achieving 10.10 METS. Test terminated due to hip pain and fatgiue. Baseline resting HR was 67bpm. Max heart rate achieved was 155bpm (86%MPHR). 1. EKG - Baseline EKG showed sinus rhythm with non specific ST-T wave abnormalities, 67bpm. During exercise there were no ischemic EKG changes. 2. SYMPTOMS - No chest pain 3. EXERCISE PHYSIOLOGY - Average functional capacity for age. BP 140/90 at rest, BP 170/86 during exercise, BP on discharge from stress lab. 4. ARRHYTHMIAS - rare PVC's Conclusion - Normal stress test without EKG changes suggestive of ischemia or symptoms concerning for angina. Kiana Lopez, MAKE UP MAN with Dr. Hernandez . us Loli Maldonado MD CV STRESS ORDERABLES Final R esult documented in this encounter Visit Diagnoses Diagnosis Bradycardia Other specified cardiac dysrhythmias Bradycardia Other specified cardiac dysrhythmias Bradycardia Other specified cardiac dysrhythmias documented in this encounter Additional Health Concerns Infection Onset Date Last Indicated Resolved Time MRSA Comment:Import to add expiration date of 11/05/2021 per Infection Control as part of historical infection status reconciliation 02/05/2008 02/05/2008 11/06/19 1:21 AM EDT CoV-Risk 04/28/2021 04/28/2021 05/08/2021 1:23 AM EDT COVID-19 08/01/2021 08/01/2021 08/22/2021 1:23 AM EST CoV-Exposed 12/14/2021 12/16/2021 12/17/2021 4:30 PM EDT CoV-Exposed 12/16/2021 12/17/2021 12/28/2021 1:22 AM EDT documented as of this encounter Care Teams Phonograph Needle Tip Maker Relationship Specialty Start Date End Date Loli Maldonado MD [address] [place] [address] PCP - General Family Medicine 03/06/19 01/21/22 Loli Maldonado MD [address] [place] [address] PCP - General Family Medicine 01/22/22 04/03/22 Loli Maldonado MD [address] [place] [address] PCP - General Family Medicine 04/04/22 01/28/23 Loli Maldonado MD [address] [place] [address] [email or web address] PCP - General Family Medicine 01/29/23 11/20/23 Pcp, Unknown PCP - General 11/21/23 02/14/24 Pcp, Unknown PCP - General 02/15/24 documented as of this encounter Additional Source Comments The information contained in this document represents components of the legal health record. It is not the complete legal health record.[facility]
--- OUTSIDE RECORDS SUMMARY | 2025-05-30 16:46 | XMS_ITS | Encounter Summary ---
Author Organization [facility] Address [address] [facility] [address] [place] [address] Phone Care Team Providers Care Housesmith Name Role Phone Loli Maldonado MD Primary Care Provider [phone] Loli Maldonado MD Primary Care Provider Loli Maldonado MD Primary Care Provider Loli Maldonado MD Primary Care Provider Pcp, Unknown Primary Care Provider Unavailabl e Pcp, Unknown Primary Care Provider Unavailabl e Encounter Details Date Type Department Care Team (Late st Contact Info) Description 09/14/2020 Procedure Pass Non-Invasive Cardiology [address] [place] [address] Social History Tobacco Use Types Packs/Day Years [...] 1:21 AM EDT CoV-Risk 04/28/2021 04/28/2021 05/08/2021 1:2 3 AM EDT COVID-19 08/01/2021 08/01/2021 08/22/2021 1:23 AM EST CoV-Exposed 12/14/2021 12/16/2021 12/17/2021 4:30 PM EDT CoV-Exposed 12/16/2021 12/17/2021 12/28/2021 1:22 AM EDT documented as of this encounter Care Teams Housesmith Relationship Specialty Start Date End Date Loli Maldonado MD [address] [place] [address] PCP - General Family Medicine 03/06/19 01/21/22 Loli Maldonado MD [address] [place] [address] PCP - General Family Medicine 01/22/22 04/03/22 Loli Maldonado MD [address] [place] [address] PCP - General Family Medicine 04/04/22 01/28/23 Loli Maldonado MD [address] [place] [address] PCP - General Family Medicine 01/29/23 11/20/23 Pcp, Unknown PCP - General 11/21/23 02/14/24 Pcp, Unknown PCP - General 02/15/24 documented as of this encounter Additional Source Comments The information contained in this document represents components of the legal health record. It is not the complete legal health record.[facility]
--- OUTSIDE RECORDS SUMMARY | 2025-05-30 16:46 | XMS_ITS | Encounter Summary ---
Author Organization [facility] Address [address] [facility] [address] [place] [address] Phone Care Team Providers Care Local Coordinator Name Role Phone Unknown, Unknown Primary Care Provider Loli Ruiz MD Primary Care Provider Loli Maldonado MD Primary Care Provider Loli Maldonado MD Primary Care Provider Loli Maldonado MD Primary Care Provider Pcp, Unknown Primary Care Provider Unavailabl e Pcp, Unknown Primary Care Provider Unavailabl e Encounter Details Date Type Department Care Team (Late st Contact Info) Description 05/11/2018 Procedure Pass [facility], Ct Scan - [address] [address] Social History Tobacco Use Types Packs/Day Years Used Date Smoking Tobacco: Every Day Cigarettes Smokeless Tobacco: Never Alcohol Use Standard Drinks/Week Comments Yes 0 (1 standard drink = 0.6 oz pure alcohol) daily drinking last drink this morning Sex and Gender Information Value Date Recorded [...] documented as of this encounter Care Teams Local Coordinator Relationship Specialty Start Date End Date Unknown, Unknown, MD PCP - General 11/21/17 03/05/19 Loli Maldonado MD [address] [place] [address] [email or web address] PCP - General Family Medicine 03/06/19 01/21/22 Loli Maldonado MD [address] [place] [address] [email or web address] PCP - General Family Medicine 01/22/22 04/03/22 Loli Maldonado MD [address] [place] [address] [email or web address] PCP - General Family Medicine 04/04/22 01/28/23 Loli Maldonado MD [address] [place] [address] [email or web address] PCP - General Family Medicine 01/29/23 11/20/23 Pcp, Unknown PCP - General 11/21/23 02/14/24 Pcp, Unknown PCP - General 02/15/24 documented as of this encounter Additional Source Comments The information contained in this document represents components of the legal health record. It is not the complete legal health record.[facility]
--- OUTSIDE RECORDS SUMMARY | 2025-05-30 16:46 | XMS_ITS | Encounter Summary ---
Author Organization [facility] Address [address] [facility] [address] [place] [address] Phone Care Team Providers Care Partition Assembler Name Role Phone Loli Maldonado MD Primary Care Provider [phone] Pcp, Unknown Primary Care Provider Unavailabl e Pcp, Unknown Primary Care Provider Unavailabl e Encounter Details Date Type Department Care Team (Late st Contact Info) Description 11/20/2023 Transcribe Orders Virtual Department [address] [place] [address] Loli Maldonado MD [address] [place] [address] [email or web address] Left arm pain (Primary Dx) Social History Tobacco Use Types Packs/Day Years Used Date Smoking Tobacco: Every Day Cigarettes Smokeless Tobacco: Never Alcohol Use Standard Drinks/Week Comments Not Currently 0 (1 standard drink = 0.6 oz pur e alcohol) 6 months sober 01/23/23 Education Answer Date Recorded Are you interested in more education? Not on michael e 12/15/2022 Are you concerned about learning? Not on file 12/15/2022 No 12/15/2022 No 12/15/2022 Digital Access Answer Date Recorded No 01/15/2023 No 01/15/2023 Reliable internet access at home? Not on file 01/15/2023 Device with a working camera? Not on file Sex and Gender Information Value Date Recorded Sex Assigned at Male 10/24/2017 11:06 AM EST Legal Sex Male 9:24 PM EDT Gender Identity Male 10/24/2017 11:06 AM EST Sexual Orientation Bisexual 10/24/2017 11 :06 AM EST documented as of this encounter Functional Status * Calculated C-SSRS Risk Score (Lifetime/Recent) Answer Date of Assessment Author No Risk Indicated 11/21/2023 12:23 AM EDT Tonya Sabillon RN * [place] Suicide Severity Rating Scale (Screener/Recent Self-Report) Question Answer Date of Assessment Author 1. Wish to be (Past 1 Month) No 11/21/2023 12:23 AM EDT Hakeem Contreras RN 2. Non-Specific Active Suici kamlesh Thoughts (Past 1 Month) No 11/21/2023 12:23 AM EDT Theresa Contreras RN 6. Suicidal Behavior (Lifetime) No 12:23 AM EDT Tonya Contreras RN documented as of this encounter Plan of Treatment Not on file documented as of this encounter Visit Diagnoses Diagnosis Left arm pain- Primary Pain in soft tissues of limb documented in this encounter Care Teams Partition Assembler Relationship Specialty Start Date End Date Loli Maldonado MD [address] [place] [address] [email or web address] PCP - General Family Medicine 01/29/23 11/20/23 Pcp, Unknown PCP - General 11/21/23 02/14/24 Pcp, Unknown PCP - General 02/15/24 documented as of this encounter Additional Source Comments The information contained in this document represents components of the legal health record. It is not the complete legal health record.[facility]
--- OUTSIDE RECORDS SUMMARY | 2025-05-30 16:46 | XMS_ITS | Encounter Summary ---
Author Organization [facility] Address [address] [place] [address] [place] [address] Phone Care Team Providers Care Procedures Nurse Name Role Phone Loli Maldonado MD Primary Care Provider Loli Maldonado MD Primary Care Provider Loli Maldonado MD Primary Care Provider Loli Maldonado MD Primary Care Provider Pcp, Unknown Primary Care Provider Unavailabl e Pcp, Unknown Primary Care Provider Unavailabl e Reason for Referral * MRI/CAT Scan - Closed Specialty Diagnoses / Procedures Referred By Neyda tinajero Referred To Contact Radiology Diagnoses Recurrent dislocation of shoulder joint, right Procedures MRI Humerus (Right) Loli Maldonado MD Phone: tel: fax: mailto:[email or web address] Referral ID Status Reason Start Date Expiration Date Visits Re quested Visits Authorized [id number] Closed 05/13/2020 11/09/2020 1 1 * MRI/CAT Scan - Closed Specialty Diagnoses / Procedures Referred By Neyda tinajero Referred To Contact Radiology Diagnoses Recurrent dislocation of shoulder joint, right Procedures MRI Shoulder (Right) Loli Maldonado MD Phone: tel: fax: mailto:[email or web address] Referral ID Status Reason Start Date Expiration Date Visits Re quested Visits Authorized [id number] Closed 05/13/2020 11/09/2020 1 1 Encounter Details Date Type Department Care Team (Late st Contact Info) Description 05/11/2020 Ancillary Orders Virtual Department [address] [place] [address] Loli Maldonado MD [address] [place] [address] [email or web address] Recurrent dislocation of shoulder joint, right Social History Tobacco Use Types Packs/Day Years [...] documented as of this encounter Results * MRI HUMERUS WITHOUT CONTRAST (RIGHT) (05/28/2020 3:55 PM EDT) Anatomical Region Laterality Modality Arm Right Magnetic Resonan ce 05/28/2020 5:07 PM EDT Impressions 05/28/2020 5:15 PM EDT Biceps muscle appears normal. No abnormalities of the humerus demonstrated distal to the shoulder. Narrative 05/28/2020 5:15 PM EDT HISTORY: Pain, limited range of motion, shoulder dislocations. COMPARISON: Right shoulder x-ray 04/26/2020 TECHNIQUE: Sagittal and coronal T1 and STIR sequences obtained only. FINDINGS: Distal to the shoulder marrow signal within the humerus is normal. No evidence of fractures. No evidence of dislocation at the elbow. No evidence of soft tissue masses or focal fluid collections. The biceps muscle appears normal. Biceps tendon at the elbow is poorly evaluated. Procedure Note To Padilla MD - 05/28/2020 HISTORY: Pain, limited range of motion, shoulder dislocations. COMPARISON: Right shoulder x-ray 04/26/2020 TECHNIQUE: Sagittal and coronal T1 and STIR sequences obtained only. FINDINGS: Distal to the shoulder marrow signal within the humerus is normal. Noevidence of fractures. No evidence of dislocation at the elbow. No evidence of soft tissue masses or focal fluid collections. The bicepsmuscle appears normal. Biceps tendon at the elbow is poorly evaluated. IMPRESSION: Biceps muscle appears normal. No abnormalities of the humerus demonstrateddistal to the shoulder. us Loli Maldonado MD IMG MR EXTREMITY Final Resul t * MRI SHOULDER WITHOUT CONTRAST (RIGHT) (05/28/2020 3:12 PM EDT) Anatomical Region Laterality Modality Shoulder Right Magnetic Resonan ce 05/28/2020 4:46 PM EDT Impressions 05/28/2020 5:10 PM EDT 1. Extensive full-thickness tear of the supraspinatus tendon. Fairly severe tendon retraction. Tear involves the infraspinatus and subscapularis tendons. Mild subluxation of the humerus superiorly in relation to the glenoid. 2. Soft tissue edema surrounding the long head biceps tendon. Mild thickening of the tendon which appears intact. Appearance may be due to strain. 3. Suspected tears of the inferior labrum and inferior glenohumeral joint. 4. Edema in the humeral head and greater tubercle consistent with contusion. 5. Diffuse soft tissue edema at the shoulder. Narrative 05/28/2020 5:10 PM EDT HISTORY: Pain, limited range of motion, instability, recurrent dislocations. COMPARISON: X-ray 04/26/2020 TECHNIQUE: Exam performed on a 1.5 Tali high-field MRI scanner. Axial T1 and proton density with fat suppression, oblique coronal proton density with fat suppression and T2 with fat suppression, oblique sagittal T1 and T2 with fat suppression sequences were obtained. MRI SHOULDER FINDINGS: Rotator cuff tendons: Extensive full-thickness tear of the supraspinatus tendon with retraction of the tendon to approximately 1:00 on the humeral head. The tear appears to involve the infraspinatus tendon and subscapularis tendon. Biceps tendon: The long head of the biceps tendon is intact. Soft tissue edema surrounding the tendon. The biceps tendon appears mildly thickened. Rotator cuff muscles: Mild-moderate atrophy of the supraspinatus muscle. Grossly intact. Mild edema in the infraspinatus muscle and minimally within the supraspinatus muscle is likely related to strain. Glenoid labrum: The inferior labrum appears somewhat attenuated. Bursae: Fluid in the subacromial/subdeltoid bursa. Joints: Minimal degenerative change at the acromioclavicular joint. The humeral head appears mildly subluxed superiorly in relation to the glenoid. Small-moderate size glenohumeral joint effusion. Edema in the region of the inferior glenohumeral ligament and adjacent soft tissues. Bones: Small amount of edema within the humeral neck and greater tubercle. Other soft tissues: Edema within the soft tissues adjacent to the humeral head, neck and proximal shaft. Soft tissue edema surrounding the long head of the biceps tendon. Procedure Note To Padilla MD - 05/28/2020 HISTORY: Pain, limited range of motion, instability, recurrentdislocations. COMPARISON: X-ray 04/26/2020 TECHNIQUE: Exam performed on a 1.5 Tali high-field MRI scanner. Axial T1and proton density with fat suppression, oblique coronal proton densitywith fat suppression and T2 with fat suppression, oblique sagittal T1 andT2 with fat suppression sequences were obtained. MRI SHOULDER FINDINGS: Rotator cuff tendons: Extensive full-thickness tear of the supraspinatustendon with retraction of the tendon to approximately 1:00 on the humeralhead. The tear appears to involve the infraspinatus tendon andsubscapularis tendon. Biceps tendon: The long head of the biceps tendon is intact. Soft tissueedema surrounding the tendon. The biceps tendon appears mildlythickened. Rotator cuff muscles: Mild-moderate atrophy of the supraspinatus muscle.Grossly intact. Mild edema in the infraspinatus muscle and minimallywithin the supraspinatus muscle is likely related to strain. Glenoid labrum: The inferior labrum appears somewhat attenuated. Bursae: Fluid in the subacromial/subdeltoid bursa. Joints: Minimal degenerative change at the acromioclavicular joint. Thehumeral head appears mildly subluxed superiorly in relation to theglenoid. Small-moderate size glenohumeral joint effusion. Edema in theregion of the inferior glenohumeral ligament and adjacent soft tissues. Bones: Small amount of edema within the humeral neck and greatertubercle. Other soft tissues: Edema within the soft tissues adjacent to the humeralhead, neck and proximal shaft. Soft tissue edema surrounding the long headof the biceps tendon. IMPRESSION: 1. Extensive full-thickness tear of the supraspinatus tendon. Fairlysevere tendon retraction. Tear involves the infraspinatus andsubscapularis tendons. Mild subluxation of the humerus superiorly inrelation to the glenoid. 2. Soft tissue edema surrounding the long head biceps tendon. Mildthickening of the tendon which appears intact. Appearance may be due tostrain. 3. Suspected tears of the inferior labrum and inferior glenohumeraljoint. 4. Edema in the humeral head and greater tubercle consistent withcontusion. 5. Diffuse soft tissue edema at the shoulder. 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 per Infection Control as part of historical infection status reconciliation 02/05/2008 02/05/2008 11/06/19 22 1:21 AM EDT CoV-Risk 07/09/2020 07/09/2020 07/23/2020 1:24 AM EST CoV-Exposed Comment:Recent close contact 07/27/2020 07/27/2020 08/10/2020 1:32 AM EST CoV-Risk 04/28/2021 04/28/2021 05/08/2021 1:23 AM EDT COVID-19 08/01/2021 08/01/2021 08/22/2021 1:23 AM EST CoV-Exposed 12/14/2021 12/16/2021 12/17/2021 4:3 0 PM EDT CoV-Exposed 12/16/2021 12/17/2021 12/28/2021 1:22 AM EDT documented as of this encounter Care Teams Procedures Nurse Relationship Specialty Start Date End Date Loli Maldonado MD [address] [place] [address] PCP - General Family Medicine 03/06/19 01/21/22 Loli Maldonado MD [address] [place] [address] [email or web address] PCP - General Family Medicine 01/22/22 04/03/22 Loli Maldonado MD [address] [place] [address] PCP - General Family Medicine 04/04/22 01/28/23 Loli Maldonado MD [address] [place] [address] PCP - General Family Medicine 01/29/23 11/20/23 Pcp, Unknown PCP - General 11/21/23 02/14/24 Pcp, Unknown PCP - General 02/15/24 documented as of this encounter Additional Source Comments The information contained in this document represents components of the legal health record. It is not the complete legal health record.[facility]
--- OUTSIDE RECORDS SUMMARY | 2025-05-30 16:46 | XMS_ITS | Encounter Summary ---
Author Organization [facility] Address [address] [facility] [address] [place] [address] Phone Care Team Providers Care Substance Abuse Counselor Name Role Phone [place], [place] MD Primary Care Provi sunny Unknown, Unknown Primary Care Provider Loli Ruiz MD Primary Care Provider [phone] Loli Maldonado MD Primary Care Provider Loli Maldonado MD Primary Care Provider Loli Maldonado MD Primary Care Provider [phone] Pcp, Unknown Primary Care Provider Unavailabl e Pcp, Unknown Primary Care Provider Unavailabl e Encounter Details Date Type Department Care Team (Late st Contact Info) Description 09/26/2017 Procedure Pass [facility] Admitting Dept Virtual Department [address] [place] [address] Social History Tobacco Use Types Packs/Day Years [...] documented as of this encounter Care Teams Substance Abuse Counselor Relationship Specialty Start Date End Date Little Dietrich MD [address] [place] [address] PCP - General 06/05/17 11/20/17 Unknown, Unknown, [address] [place] [address] PCP - General 11/21/17 03/05/19 Loli Maldonado MD [address] [place] [address] PCP - General Family Medicine 03/06/19 01/21/22 Loli Maldonado MD [address] [place] [address] PCP - General Family Medicine 01/22/22 04/03/22 Loli Maldonado MD [address] [place] [address] [email or web address] PCP - General Family Medicine 04/04/22 01/28/23 Loli Maldonado MD [address] [place] [address] PCP - General Family Medicine 01/29/23 11/20/23 Pcp, Unknown PCP - General 11/21/23 02/14/24 Pcp, Unknown PCP - General 02/15/24 documented as of this encounter Additional Source Comments The information contained in this document represents components of the legal health record. It is not the complete legal health record.[facility]
--- OUTSIDE RECORDS SUMMARY | 2025-05-30 16:46 | XMS_ITS | Encounter Summary ---
Author Organization [facility] Address [address] [facility] [address] [place] [address] Phone Care Team Providers Care Plastering Contractor Name Role Phone Loli Maldonado MD Primary Care Provider Loli Maldonado MD Primary Care Provider Loli Maldonado MD Primary Care Provider Loli Maldonado MD Primary Care Provider Pcp, Unknown Primary Care Provider Unavailabl e Pcp, Unknown Primary Care Provider Unavailabl e Encounter Details Date Type Department Care Team (Late st Contact Info) Description 10/07/2019 Procedure Pass [facility], [address] [address] Social History Tobacco Use Types Packs/Day Years [...] AM EST documented as of this encounter Last Filed Vital Signs Vital Sign Reading Time Taken Comments Blood Pressure - - Pulse - - Temperature - - Respiratory Rate - - Oxygen Saturation - - Inhaled Oxygen Concentration - - Weight 86.2 kg (190 lb) 10/08/2019 3:20 PM EST Height 172.7 cm (5' 8 ) 10/08/2019 3:20 PM EST Body Mass Index 28.89 10/08/2019 3:20 PM EST documented in this encounter Plan of Treatment Not on [...] documented as of this encounter Care Teams Plastering Contractor Relationship Specialty Start Date End Date Loli Maldonado MD [address] [place] [address] [email or web address] PCP - General Family Medicine 03/06/19 01/21/22 Loli Maldonado MD [address] [place] [address] PCP - General Family Medicine 01/22/22 04/03/22 Loli Maldonado MD [address] [place] [address] [email or web address] PCP - General Family Medicine 04/04/22 01/28/23 Loli Maldonado MD [address] [place] [address] PCP - General Family Medicine 01/29/23 11/20/23 Pcp, Unknown PCP - General 11/21/23 02/14/24 Pcp, Unknown PCP - General 02/15/24 documented as of this encounter Additional Source Comments The information contained in this document represents components of the legal health record. It is not the complete legal health record.[facility]
--- OUTSIDE RECORDS SUMMARY | 2025-05-30 16:46 | XMS_ITS | Encounter Summary ---
Author Organization [facility] Address [address] [facility] [address] [place] [address] Phone Care Team Providers Care House Principal Name Role Phone Loli Maldonado MD Primary Care Provider Loli Maldonado MD Primary Care Provider Loli Maldonado MD Primary Care Provider Loli Maldonado MD Primary Care Provider Pcp, Unknown Primary Care Provider Unavailabl e Pcp, Unknown Primary Care Provider Unavailabl e Encounter Details Date Type Department Care Team (Late st Contact Info) Description 08/26/2019 Ancillary Orders [facility], X-Ray - [address] [place] [address] Loli Maldonado MD [address] [place] [address] [email or web address] Contusion of right knee, initial encounter Social History Tobacco Use Types [...] as of this encounter Visit Diagnoses Diagnosis Contusion of right knee, initial encounter documented in this encounter Additional [...] documented as of this encounter Care Teams House Principal Relationship Specialty Start Date End Date Loli Maldonado MD [address] [place] [address] PCP - General Family Medicine 03/06/19 01/21/22 Loli Maldonado MD [address] [place] [address] PCP - General Family Medicine 01/22/22 04/03/22 L[facility]ado MD [address] [facility] [place] [address] PCP - General Family Medicine 04/04/22 01/28/23 Loli Maldonado MD [address] [place] [address] PCP - General Family Medicine 01/29/23 11/20/23 Pcp, Unknown PCP - General 11/21/23 02/14/24 Pcp, Unknown PCP - General 02/15/24 documented as of this encounter Additional Source Comments The information contained in this document represents components of the legal health record. It is not the complete legal health record.[facility]
--- OUTSIDE RECORDS SUMMARY | 2025-05-30 16:46 | XMS_ITS | Encounter Summary ---
Author Organization [facility] Address [address] [facility] [address] [place] [address] Phone Care Team Providers Care Form Maker Plaster Name Role Phone Loli Maldonado MD Primary Care Provider Loli Maldonado MD Primary Care Provider Loli Maldonado MD Primary Care Provider Loli Maldonado MD Primary Care Provider Pcp, Unknown Primary Care Provider Unavailabl e Pcp, Unknown Primary Care Provider Unavailabl e Encounter Details Date Type Department Care Team (Late st Contact Info) Description 03/29/2021 Ancillary Orders Virtual Department [address] [place] [address] Loli Maldonado MD [address] [place] [address] Right shoulder pain, unspecified chronicity; Decreased ROM of right shoulder Social History Tobacco Use Types Packs/Day Years [...] as of this encounter Visit Diagnoses Diagnosis Right shoulder pain, unspecified chronicity Decreased ROM of right shoulder documented in this encounter Additional Health Concerns [...] documented as of this encounter Care Teams Form Maker Plaster Relationship Specialty Start Date End Date Loli Maldonado MD [address] [place] [address] [email or web address] PCP - General Family Medicine 03/06/19 01/21/22 Loli Maldonado MD [address] [place] [address] [email or web address] PCP - General Family Medicine 01/22/22 04/03/22 Loli Maldonado MD [address] [place] [address] [email or web address] PCP - General Family Medicine 04/04/22 01/28/23 Loli Maldonado MD [address] [place] [address] PCP - General Family Medicine 01/29/23 11/20/23 Pcp, Unknown PCP - General 11/21/23 02/14/24 Pcp, Unknown PCP - General 02/15/24 documented as of this encounter Additional Source Comments The information contained in this document represents components of the legal health record. It is not the complete legal health record.[facility]
--- OUTSIDE RECORDS SUMMARY | 2025-05-30 16:46 | XMS_ITS | Encounter Summary ---
Author Organization [facility] Address [address] [facility] [address] [place] [address] Phone Care Team Providers Care Mortar Man Name Role Phone [place], [place] MD Primary Care Provi sunny Unknown, Unknown Primary Care Provider Loli Ruiz MD Primary Care Provider [phone] Loli Maldonado MD Primary Care Provider Loli Maldonado MD Primary Care Provider [phone] Loli Maldonado MD Primary Care Provider Pcp, Unknown Primary Care Provider Unavailabl e Pcp, Unknown Primary Care Provider Unavailabl e Encounter Details Date Type Department Care Team (Late st Contact Info) Description 09/25/2017 Procedure Pass [facility], Ct Scan - [address] [address] Social History Tobacco Use Types Packs/Day Years [...] documented as of this encounter Care Teams Mortar Man Relationship Specialty Start Date End Date Little Dietrich MD [address] [place] [id number] PCP - General 06/05/17 11/20/17 Unknown, Unknown, [address] [place] [address] PCP - General 11/21/17 03/05/19 Loli Maldonado MD [address] [place] [address] PCP - General Family Medicine 03/06/19 01/21/22 Loli Maldonado MD [address] [place] [address] PCP - General Family Medicine 01/22/22 04/03/22 Loli Maldonado MD [address] [place] [address] [email or web address] PCP - General Family Medicine 04/04/22 01/28/23 Loli Maldonado MD [address] [place] [address] [email or web address] PCP - General Family Medicine 01/29/23 11/20/23 Pcp, Unknown PCP - General 11/21/23 02/14/24 Pcp, Unknown PCP - General 02/15/24 documented as of this encounter Additional Source Comments The information contained in this document represents components of the legal health record. It is not the complete legal health record.[facility]
--- OUTSIDE RECORDS SUMMARY | 2025-05-30 16:46 | XMS_ITS | Encounter Summary ---
Author Organization [facility] Address [address] [facility] [address] [place] [address] Phone Care Team Providers Care Dining Room Manager Name Role Phone Loli Maldonado MD Primary Care Provider Loli Maldonado MD Primary Care Provider Loli Maldonado MD Primary Care Provider Loli Maldonado MD Primary Care Provider Pcp, Unknown Primary Care Provider Unavailabl e Pcp, Unknown Primary Care Provider Unavailabl e Encounter Details Date Type Department Care Team (Latest Contact Info) Description 10/07/2019 Transcribe Orders [facility] [address] [place] [address] Loli Maldonado MD [address] [facility] [place] [address] Polyarthritis (Primary Dx) Social History Tobacco Use Types [...] documented as of this encounter Results * Lyme screen with reflex to Western blot, blood (10/07/2019 1:57 PM EST) Lyme AB IgG Negative Negative [facility] Lyme AB IgM Negative Negative [facility] Blood 10/07/2019 1:57 PM EST 10/07/2019 2:03 PM EST Loli Maldonado MD LAB BLOOD ORDERABLES Final R esult [address] [address] * Rheumatoid factor (10/07/2019 1:57 PM EST) Pathologist [facility] RHEUMATOID FACTOR <10.0 0.0 - 14.0 IU/ml [facility] Blood 10/07/2019 1:57 PM EST 10/07/2019 2:03 PM EST Loli Maldonado MD LAB BLOOD ORDERABLES Final R esult Performing Organization Address City/[facility]/ZIP Co de Phone Number [address] [address] * (ABNORMAL) C-Reactive Protein (10/07/2019 1:57 PM EST) C REACTIVE PROTEIN 5.4(H) 0.0 - 4.0 mg/L [facility] Blood 10/07/2019 1:57 PM EST 10/07/2019 2:03 PM EST Loli Maldonado MD LAB BLOOD ORDERABLES Final R esult Performing Organization Address City/[facility]/ZIP Co de Phone Number [address] [address] * Sedimentation rate (ESR) (10/07/2019 1:57 PM EST) Pathologist [facility] ESR 9 0 - 15 mm/h [facility] Blood 10/07/2019 1:57 PM EST 10/07/2019 2:03 PM EST us Loli Maldonado MD LAB BLOOD ORDERABLES Final R esult [facility] [address] [place] [address] * CBC and differential (10/07/2019 1:57 PM EST) WBC 7.24 4.00 - 11.00 K/uL [facility] Comment:Note Reference Range updates to all CBC and Differential results. RBC 5.01 4.23 - 5.82 M/uL [facility] HGB 14.6 13.4 - 17.5 g/dL [facility] Comment:Note updated Referen ce Ranges for all CBC and Differential results. HCT 42.8 37.0 - 51.0 % [facility] PLT 208 140 - 430 K/uL [facility] MCV 85.4 78.0 - 97.0 fL [facility] MCH 29.1 25.0 - 33.0 pg [facility] MCHC 34.1 32.0 - 36.0 g/dL [facility] RDW 13.2 11.0 - 15.0 % [facility] MPV 10.3 8.4 - 12.8 [facility] NRBC 0.00 0 /100 WBCs [facility] ABSOLUTE NRBC 0.00 0 K/uL [facility] DIFF METHOD Auto [facility] NEUTS 69.6 43.0 - 75.0 % [facility] LYMPHS 22.1 18.2 - 47.4 % [facility] MONOS 6.1 4.00 - 11.00 % [facility] EOS 1.1 0.0 - 8.0 % [facility] BASOS 0.7 0.0 - 2.0 % [facility] Granulocytes, immature (%) 0.4 0.0 - 0.9 % [facility] ABSOLUTE NEUTS 5.04 1.80 - 7.70 K/uL [facility] ABSOLUTE LYMPHS 1.60 1.00 - 3.10 K/uL [facility] ABSOLUTE MONOS 0.44 0.20 - 0.80 K/uL [facility] ABSOLUTE EOS 0.08 0.00 - 0.80 K/uL [facility] ABSOLUTE BASOS 0.05 0.00 - 0.09 K/uL [facility] Granulocytes, immature 0.03 0.00 - 0.05 K/uL [facility] Blood 10/07/2019 1:57 PM EST 10/07/2019 2:03 PM EST us Loli Maldonado MD LAB BLOOD ORDERABLES Final R esult [address] [address] * Basic metabolic panel (10/07/2019 1:57 PM EST) SODIUM 139 133 - 146 mmol/L [facility] CHLORIDE 101 96 - 108 mmol/L [facility] POTASSIUM 4.0 3.3 - 5.1 mmol/L [facility] CO2 26 21 - 35 mmol/L [facility] BUN 13 6 - 19 mg/dL [facility] CREATININE 0.90 0.5 - 1.5 mg/dL [facility] GLUCOSE 76 70 - 99 mg/dL [facility] CALCIUM 9.6 8.4 - 10.3 mg/dL [facility] EGFR 106 >59 mL/min/1.7 3m2 [facility] Comment:If patient is black, multiply result by 1.159. Estimated glomerular filtration rate calculated using the CKD-EPI equation. ANION GAP 16 10 - 20 mmol/L [facility] Blood 10/07/2019 1:57 PM EST 10/07/2019 2:03 PM EST us Loli Maldonado MD LAB BLOOD ORDERABLES Final R esult [address] [address] documented in this encounter Visit Diagnoses Diagnosis Polyarthritis- Primary Unspecified polyarthropathy or polyarthritis, site unspecified documented in this encounter Additional Health Concerns [...] documented as of this encounter Care Teams Dining Room Manager Relationship Specialty Start Date End Date Loli Maldonado MD [address] [place] [address] [email or web address] PCP - General Family Medicine 03/06/19 01/21/22 Loli Maldonado MD [address] [place] [address] [email or web address] PCP - General Family Medicine 01/22/22 04/03/22 Loli Maldonado MD [address] [place] [address] [email or web address] PCP - General Family Medicine 04/04/22 01/28/23 Loli Maldonado MD [address] [place] [address] [email or web address] PCP - General Family Medicine 01/29/23 11/20/23 Pcp, Unknown PCP - General 11/21/23 02/14/24 Pcp, Unknown PCP - General 02/15/24 documented as of this encounter Additional Source Comments The information contained in this document represents components of the legal health record. It is not the complete legal health record.[facility]
--- OUTSIDE RECORDS SUMMARY | 2025-05-30 16:46 | XMS_ITS | Encounter Summary ---
Author Organization [facility] Address [address] [facility] [address] [place] [address] Phone Care Team Providers Care Assistant Housekeeping Manager Name Role Phone Loli Maldonado MD Primary Care Provider Loli Maldonado MD Primary Care Provider Loli Maldonado MD Primary Care Provider Loli Maldonado MD Primary Care Provider Pcp, Unknown Primary Care Provider Unavailabl e Pcp, Unknown Primary Care Provider Unavailabl e Reason for Referral * MRI/CAT Scan - Closed Specialty Diagnoses / Procedures Referred By Neyda tinajero Referred To Contact Radiology Diagnoses Acute pain of right shoulder Procedures MRI Shoulder (Right) Loli Maldonado MD Phone: tel: fax: [email or web address] Referral ID Status Reason Start Date Expiration Date Visits Re quested Visits Authorized [id number] Closed 01/24/2021 01/24/2022 1 1 Encounter Details Date Type Department Care Team (Late st Contact Info) Description 01/24/2021 Ancillary Orders Virtual Department [address] [place] [address] Loli Maldonado MD [address] [place] [phone] (work) [email or web address] Acute pain of right shoulder Social History Tobacco Use [...] as of this encounter Results * MRI SHOULDER WITHOUT CONTRAST (RIGHT) (01/25/2021 4:54 PM EDT) Anatomical Region Laterality Modality Shoulder Right Magnetic Resonan ce 01/25/2021 6:10 PM EDT Impressions 01/25/2021 6:33 PM EDT Evaluation partially limited due to artifacts. 1.Complete full-thickness tear of the supraspinatus tendon. 2.Near complete tear of the infraspinatus tendon. 3.Moderate tendinopathy of the subscapularis. 4.Marked edema of the rotator cuff musculature, predominantly infraspinatus 5.Rupture of the long head of the biceps tendon. 6.Postoperative changes. Narrative 01/25/2021 6:33 PM EDT MRI SHOULDER WITHOUT CONTRAST (RIGHT) History: Acute pain of right shoulder bruising at surgical site s/p rotator cuff repair Study notes from technologist: History of right shoulder surgery in October 2020 for rotator cuff repair. Was lifting a bicycle about 10 days ago and felt a pop, followed by acute right shoulder pain with limited range of motion. Technique: Study obtained at 1.5 Tali magnet unit. MRI of the right shoulder was obtained without administration of intravenous contrast. Comparison: Shoulder MRI on May 28, 2020.. Findings: Motion degrades many sequences. ROTATOR cuff: -Supraspinatus: Atrophic and edematous muscle bulk. Complete full-thickness tear of the supraspinatus tendon with approximately 2.5 cm retraction. -Infraspinatus: Markedly edematous changes. Near complete tear, with few intact fibers. -Teres minor: Normal in bulk. No fatty infiltration. -Subscapularis: Edematous muscle. Moderate tendinopathy. Long head of Biceps tendon: Not identified in the bicipital groove, and likely completely torn. Acromioclavicular joint: Mild osteoarthritis. Flat undersurface of the acromion. Subacromial subdeltoid bursa: Small/moderate fluid that could be mixed with blood products. Glenohumeral joint: The joint articulation is preserved. No full-thickness defect of the articular cartilage. Glenoid labrum: No displaced tear identified. Bones and soft tissues: Postoperative changes. Heterogeneous bone marrow edema. Small joint effusion containing heterogeneous component mixed with blood products. Procedure Note Pavan Arnold MD - 01/25/2021 MRI SHOULDER WITHOUT CONTRAST (RIGHT) History: Acute pain of right shoulder bruising at surgical site s/protator cuff repair Study notes from technologist: History of right shoulder surgery in October2020 for rotator cuff repair. Was lifting a bicycle about 10 days ago andfelt a pop, followed by acute right shoulder pain with limited range ofmotion. Technique: Study obtained at 1.5 Tali magnet unit. MRI of the [facility] was obtained without administration of intravenous contrast. Comparison: Shoulder MRI on May 28, 2020.. Findings: Motion degrades many sequences. ROTATOR cuff: -Supraspinatus: Atrophic and edematous muscle bulk. Completefull-thickness tear of the supraspinatus tendon with approximately 2.5 cmretraction. -Infraspinatus: Markedly edematous changes. Near complete tear, with fewintact fibers. -Teres minor: Normal in bulk. No fatty infiltration. -Subscapularis: Edematous muscle. Moderate tendinopathy. Long head of Biceps tendon: Not identified in the bicipital groove, andlikely completely torn. Acromioclavicular joint: Mild osteoarthritis. Flat undersurface of theacromion. Subacromial subdeltoid bursa: Small/moderate fluid that could be mixedwith blood products. Glenohumeral joint: The joint articulation is preserved. No full-thicknessdefect of the articular cartilage. Glenoid labrum: No displaced tear identified. Bones and soft tissues: Postoperative changes. Heterogeneous bone marrowedema. Small joint effusion containing heterogeneous component mixed withblood products. IMPRESSION: Evaluation partially limited due to artifacts. 1.Complete full-thickness tear of the supraspinatus tendon. 2.Near complete tear of the infraspinatus tendon. 3.Moderate tendinopathy of the subscapularis. 4.Marked edema of the rotator cuff musculature, predominantlyinfraspinatus 5.Rupture of the long head of the biceps tendon. 6.Postoperative changes. Loli Maldonado MD IMG MR EXTREMITY Final Resul t documented in this encounter Visit Diagnoses Diagnosis Acute pain of right shoulder Acute pain of right shoulder documented in this encounter [...] documented as of this encounter Care Teams Assistant Housekeeping Manager Relationship Specialty Start Date End Date Loli Maldonado MD [address] [place] [address] [email or web address] PCP - General Family Medicine 03/06/19 01/21/22 Loli Maldonado MD [address] [place] [address] PCP - General Family Medicine 01/22/22 04/03/22 Loli Maldonado MD [address] [place] [address] [email or web address] PCP - General Family Medicine 04/04/22 01/28/23 Loli Maldonado MD [address] [place] [address] [email or web address] PCP - General Family Medicine 01/29/23 11/20/23 Pcp, Unknown PCP - General 11/21/23 02/14/24 Pcp, Unknown PCP - General 02/15/24 documented as of this encounter Additional Source Comments The information contained in this document represents components of the legal health record. It is not the complete legal health record.[facility]
--- OUTSIDE RECORDS SUMMARY | 2025-05-30 16:46 | XMS_ITS | Encounter Summary ---
Author Organization [facility] Address [address] [facility] [address] [place] [address] Phone Care Team Providers Care Looseleaf Binder Coverer Name Role Phone Unknown, Unknown Primary Care Provider Loli Ruiz MD Primary Care Provider [phone] Loli Maldonado MD Primary Care Provider Loli Maldonado MD Primary Care Provider Loli Maldonado MD Primary Care Provider [phone] Pcp, Unknown Primary Care Provider Unavailabl e Pcp, Unknown Primary Care Provider Unavailabl e Encounter Details Date Type Department Care Team (Late st Contact Info) Description 11/21/2017 Transcribe Orders [facility] [address] [place] [address] Carlos Graff, DO [address] [facility] [place] [address] Social History Tobacco Use Types Packs/Day Years [...] documented as of this encounter Care Teams Looseleaf Binder Coverer Relationship Specialty Start Date End Date Unknown, Unknown, MD PCP - General 11/21/17 03/05/19 Loli Maldonado MD [address] [place] [address] [email or web address] PCP - General Family Medicine 03/06/19 01/21/22 Loli Maldonado MD [address] [place] [address] [email or web address] PCP - General Family Medicine 01/22/22 04/03/22 Loli Maldonado MD [address] [place] [address] [email or web address] PCP - General Family Medicine 04/04/22 01/28/23 Loli Maldonado MD [address] [place] [address] [email or web address] PCP - General Family Medicine 01/29/23 11/20/23 Pcp, Unknown PCP - General 11/21/23 02/14/24 Pcp, Unknown PCP - General 02/15/24 documented as of this encounter Additional Source Comments The information contained in this document represents components of the legal health record. It is not the complete legal health record.[facility]
--- OUTSIDE RECORDS SUMMARY | 2025-05-30 16:46 | XMS_ITS | Encounter Summary ---
Author Organization [facility] Address [address] [facility] [address] [place] [address] Phone Care Team Providers Care Softball Core Molder Name Role Phone Unknown, Unknown Primary Care Provider Loli Ruiz MD Primary Care Provider Loli Maldonado MD Primary Care Provider Loli Maldonado MD Primary Care Provider Loli Maldonado MD Primary Care Provider Pcp, Unknown Primary Care Provider Unavailabl e Pcp, Unknown Primary Care Provider Unavailabl e Encounter Details Date Type Department Care Team (Late st Contact Info) Description 02/07/2019 Ancillary Orders [facility], X-Ray - [address] [place] [address] Loli Maldonado MD [address] [place] [address] [email or web address] Shoulder instability, right Social History Tobacco Use Types Packs/Day Years Used Date Smoking Tobacco: Every Day Cigarettes Smokeless Tobacco: Never Alcohol Use Standard Drinks/Week Comments Yes 0 (1 standard drink = 0.6 oz pure alcohol) He is drinking about 3 L wine daily for the past month. Significant use prior to that. 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 Sex and Gender Information Value Date Recorded Sex Assigned at Male 10/24/2017 11:06 AM EST Legal Sex Male 9:24 PM EDT Gender Identity Male 10/24/2017 11:06 AM EST Sexual Orientation Bisexual 10/24/2017 11 :06 AM EST documented as of this encounter Plan of Treatment Not on file documented as of this encounter Results * XR SHOULDER 2 VIEWS (RIGHT) (02/07/2019 5:49 PM EDT) Anatomical Region Laterality Modality Shoulder Right Radiographic Ness ging 02/07/2019 10:2 3 PM EDT Impressions 02/07/2019 10:28 PM EDT No acute fracture or dislocation. POS - [id number] Narrative 02/07/2019 10:28 PM EDT EXAM: XR SHOULDER 2 OR MORE VIEWS (RIGHT) COMPARISON: April 26, 2018 FINDINGS: No acute fractures. Humeral head appropriately articulates with the glenoid fossa. Healed right 5th rib fracture. Acromioclavicular joint is congruent. The visualized right lung is clear. Procedure Note Pavan Arnold MD - 02/07/2019 EXAM: XR SHOULDER 2 OR MORE VIEWS (RIGHT) COMPARISON: April 26, 2018 FINDINGS: No acute fractures. Humeral head appropriately articulates with theglenoid fossa. Healed right 5th rib fracture. Acromioclavicular joint iscongruent. The visualized right lung is clear. IMPRESSION: No acute fracture or dislocation. POS - [id number] Loli Maldonado MD IMG XR UPPER EXTREMITY Final Result documented in this encounter Visit Diagnoses Diagnosis Shoulder instability, right Shoulder instability, right documented in this encounter Additional Health [...] documented as of this encounter Care Teams Softball Core Molder Relationship Specialty Start Date End Date Unknown, Unknown, MD PCP - General 11/21/17 03/05/19 Loli Maldonado MD [address] [place] [address] [email or web address] PCP - General Family Medicine 03/06/19 01/21/22 Loli Maldonado MD [address] [facility] [place] [address] [email or web address] PCP - General Family Medicine 01/22/22 04/03/22 Loli Maldonado MD [address] [place] [address] [email or web address] PCP - General Family Medicine 04/04/22 01/28/23 Lloi Maldonado MD [address] [facility] [place] [address] [email or web address] PCP - General Family Medicine 01/29/23 11/20/23 Pcp, Unknown PCP - General 11/21/23 02/14/24 Pcp, Unknown PCP - General 02/15/24 documented as of this encounter Additional Source Comments The information contained in this document represents components of the legal health record. It is not the complete legal health record.[facility]
--- OUTSIDE RECORDS SUMMARY | 2025-05-30 16:46 | XMS_ITS | Encounter Summary ---
Author Organization [facility] Address [address] [facility] [address] [place] [address] Phone Care Team Providers Care Digester Operator Name Role Phone Loli Maldonado MD Primary Care Provider Loli Maldonado MD Primary Care Provider [phone] Loli Maldonado MD Primary Care Provider [phone] Loli Maldonado MD Primary Care Provider Pcp, Unknown Primary Care Provider Unavailabl e Pcp, Unknown Primary Care Provider Unavailabl e Encounter Details Date Type Department Care Team (Late st Contact Info) Description 12/01/2020 Procedure Pass [facility], Ct Scan - [address] [address] Social History Tobacco Use Types Packs/Day Years [...] Date of Assessment Author No Risk Indicated 12/01/2020 4:10 PM EDT Medina Jones RN * [place] Suicide Severity Rating Scale (Screener/Recent Self-Report) Question Answer Date of Assessment Author 1. Wish to be (Past 1 Month) No 12/01/2020 4:10 PM EDT Medina Napier RN 2. Non-Specific Active Suici kamlesh Thoughts (Past 1 Month) No 12/01/2020 4:10 PM EDT Tamra Napier RN 6. Suicidal Behavior (Lifetime) No 4:10 PM EDT Medina Napier RN documented as of this encounter Plan [...] documented as of this encounter Care Teams Digester Operator Relationship Specialty Start Date End Date Loli Maldonado MD [address] [place] [address] [email or web address] PCP - General Family Medicine 03/06/19 01/21/22 Loli Maldonado MD [address] [place] [address] [email or web address] PCP - General Family Medicine 01/22/22 04/03/22 Loli Maldonado MD [address] [place] [address] PCP - General Family Medicine 04/04/22 01/28/23 Loli Maldonado MD [address] [place] [address] PCP - General Family Medicine 01/29/23 11/20/23 Pcp, Unknown PCP - General 11/21/23 02/14/24 Pcp, Unknown PCP - General 02/15/24 documented as of this encounter Additional Source Comments The information contained in this document represents components of the legal health record. It is not the complete legal health record.[facility]
--- OUTSIDE RECORDS SUMMARY | 2025-05-30 16:46 | XMS_ITS | Encounter Summary ---
Author Organization [facility] Address [address] [facility] [address] [place] [address] Phone Care Team Providers Care Hadoop Java Developer Name Role Phone Unknown, Unknown Primary Care Provider Loli Ruiz MD Primary Care Provider [phone] Loli Maldonado MD Primary Care Provider Loli Maldonado MD Primary Care Provider Loli Maldonado MD Primary Care Provider Pcp, Unknown Primary Care Provider Unavailabl e Pcp, Unknown Primary Care Provider Unavailabl e Encounter Details Date Type Department Care Team (Late st Contact Info) Description 01/05/2018 Procedure Pass [facility], Ct Scan - [address] [address] Social History Tobacco Use Types Packs/Day Years [...] documented as of this encounter Care Teams Hadoop Java Developer Relationship Specialty Start Date End Date Unknown, Unknown, MD PCP - General 11/21/17 03/05/19 Loli Maldonado MD [address] [place] [address] [email or web address] PCP - General Family Medicine 03/06/19 01/21/22 Loli Maldonado MD [address] [place] [address] [email or web address] PCP - General Family Medicine 01/22/22 04/03/22 Loli Maldonado MD [address] [place] [address] [email or web address] PCP - General Family Medicine 04/04/22 01/28/23 Loli Maldonado MD [address] [place] [address] [email or web address] PCP - General Family Medicine 01/29/23 11/20/23 Pcp, Unknown PCP - General 11/21/23 02/14/24 Pcp, Unknown PCP - General 02/15/24 documented as of this encounter Additional Source Comments The information contained in this document represents components of the legal health record. It is not the complete legal health record.[facility]
--- OUTSIDE RECORDS SUMMARY | 2025-05-30 16:46 | XMS_ITS | Encounter Summary ---
Author Organization [facility] Address [address] [facility] [address] [place] [address] Phone Care Team Providers Care Other Wood Processing Machine Operator Name Role Phone Loli Maldonado MD Primary Care Provider Loli Maldonado MD Primary Care Provider Loli Maldonado MD Primary Care Provider [phone] Loli Maldonado MD Primary Care Provider [phone] Pcp, Unknown Primary Care Provider Unavailabl e Pcp, Unknown Primary Care Provider Unavailabl e Encounter Details Date Type Department Care Team (Late st Contact Info) Description 04/28/2021 Procedure Pass [facility], Ct Scan - [address] [address] Social History Tobacco Use Types Packs/Day Years [...] Date of Assessment Author No Risk Indicated 04/28/2021 3:58 PM EDT Cruz Wynn CNP * [place] Suicide Severity Rating Scale (Screener/Recent Self-Report) Question Answer Date of Assessment Author 1. Wish to be (Past 1 Month) No 04/28/2021 3:58 PM EDT Cruz Wynn CNP 2. Non-Specific Active Suicidal Thoughts (Past 1 Month) No 04/28/2021 3:58 PM EDT Cruz Wynn CNP 6. Suicidal Behavior (Lifetime) No 04/28/2021 3:58 PM EDT Cruz Wynn CNP documented as of this encounter Plan of [...] documented as of this encounter Care Teams Other Wood Processing Machine Operator Relationship Specialty Start Date End Date Loli Maldonado MD [address] [place] [address] [email or web address] PCP - General Family Medicine 03/06/19 01/21/22 Loli Maldonado MD [address] [place] [address] PCP - General Family Medicine 01/22/22 04/03/22 Loli Maldonado MD [address] [place] [address] [email or web address] PCP - General Family Medicine 04/04/22 01/28/23 Loli Maldonado MD [address] [place] [address] [email or web address] PCP - General Family Medicine 01/29/23 11/20/23 Pcp, Unknown PCP - General 11/21/23 02/14/24 Pcp, Unknown PCP - General 02/15/24 documented as of this encounter Additional Source Comments The information contained in this document represents components of the legal health record. It is not the complete legal health record.[facility]
--- OUTSIDE RECORDS SUMMARY | 2025-05-30 16:46 | XMS_ITS | Encounter Summary ---
Author Organization [facility] Address [address] [facility] [address] [place] [address] Phone Care Team Providers Care Trial Lawyer Name Role Phone Loli Maldonado MD Primary Care Provider Loli Maldonado MD Primary Care Provider [phone] Loli Maldonado MD Primary Care Provider [phone] Loli Maldonado MD Primary Care Provider Pcp, Unknown Primary Care Provider Unavailabl e Pcp, Unknown Primary Care Provider Unavailabl e Reason for Referral * MRI/CAT Scan - Closed Specialty Diagnoses / Procedures Referred By Neyda tinajero Referred To Contact Radiology Diagnoses Left knee pain, unspecified chronicity Procedures MRI Knee (Left) Loli Maldonado MD Phone: tel: fax: [email or web address] Referral ID Status Reason Start Date Expiration Date Visits Re quested Visits Authorized [id number] Closed 07/23/2020 01/19/2021 1 1 Encounter Details Date Type Department Care Team (Late st Contact Info) Description 07/26/2020 Ancillary Orders Virtual Department [address] [place] [address] Loli Maldonado MD [address] [place] [id number] Left knee pain, unspecified chronicity Social History Tobacco Use Types Packs/Day Years [...] as of this encounter Results * MRI KNEE WITHOUT CONTRAST (LEFT) (08/11/2020 8:44 PM EST) Anatomical Region Laterality Modality Knee Left Magnetic Resonan ce 08/12/2020 7:53 AM EST Impressions 08/12/2020 8:01 AM EST *Limited as above.* 1.Findings indicative of a bucket-handle medial meniscal tear. 2.Posterior cruciate ligament partial tear versus sprain. 3.Small joint effusion and Piedra's cyst. Narrative 08/12/2020 8:01 AM EST COMPARISON: Left tibia-fibula x-rays 01/09/2014. TECHNIQUE: Exam performed on a 1.5 Tali high-field MRI scanner. *Limited due to suboptimal positioning and limited sequences. Only axial PD fat- sat, sagittal T1 and sagittal T2 fat sequences were obtained sequences were obtained further imaging could not be obtained as Hospital security was required for the patient.* MRI LEFT KNEE FINDINGS: Patella: No patella malalignment or chondromalacia. Menisci: Lateral meniscus is intact. No tear or discoid meniscus. There is abnormal horizontal hyperintense signal throughout the body, posterior horn and posterior meniscal root attachment of the medial meniscus which extends to the inferior articular surface consistent with a tear. There are hypointense structures within the intercondylar notch anterior to the anterior cruciate ligament which may represent displaced meniscal fragment. Cruciate ligaments: The anterior cruciate ligament appears intact. There is intermediate to hyperintense signal within the posterior cruciate ligament on the axial PD fat-sat and sagittal T2 fat sat sequences suggestive of a PCL sprain or partial tear. Collateral ligaments: Collateral ligaments appear intact. Extensor mechanism: Quadriceps and patellar tendons are intact. Bone marrow/joint: Joint spaces are preserved. No malalignment. No destructive or suspicious bone lesions. Small joint effusion. Small Piedra's cyst. Procedure Note Evan Galeana MD - 08/12/2020 COMPARISON: Left tibia-fibula x-rays 01/09/2014. TECHNIQUE: Exam performed on a 1.5 Tali high-field MRI scanner. *Limiteddue to suboptimal positioning and limited sequences. Only axial PDfat-sat, sagittal T1 and sagittal T2 fat sequences were obtained sequenceswere obtained further imaging could not be obtained as Hospital securitywas required for the patient.* MRI LEFT KNEE FINDINGS: Patella: No patella malalignment or chondromalacia. Menisci: Lateral meniscus is intact. No tear or discoid meniscus. Thereis abnormal horizontal hyperintense signal throughout the body, posteriorhorn and posterior meniscal root attachment of the medial meniscus whichextends to the inferior articular surface consistent with a tear. Thereare hypointense structures within the intercondylar notch anterior to theanterior cruciate ligament which may represent displaced meniscalfragment. Cruciate ligaments: The anterior cruciate ligament appears intact. Thereis intermediate to hyperintense signal within the posterior cruciateligament on the axial PD fat-sat and sagittal T2 fat sat sequencessuggestive of a PCL sprain or partial tear. Collateral ligaments: Collateral ligaments appear intact. Extensor mechanism: Quadriceps and patellar tendons are intact. Bone marrow/joint: Joint spaces are preserved. No malalignment. Nodestructive or suspicious bone lesions. Small joint effusion. SmallBaker's cyst. IMPRESSION: *Limited as above.* 1.Findings indicative of a bucket-handle medial meniscal tear. 2.Posterior cruciate ligament partial tear versus sprain. 3.Small joint effusion and Piedra's cyst. Loli Maldonado MD IMG MR EXTREMITY Final Resul t documented in this encounter Visit Diagnoses Diagnosis Left knee pain, unspecified chronicity Left knee pain, unspecified chronicity documented in this encounter Additional Health Concerns Infection Onset Date Last Indicated Resolved Time MRSA Comment:Import to add expiration date of 11/05/2021 per Infection Control as part of historical infection status reconciliation 02/05/2008 02/05/2008 11/06/19 1:21 AM EDT CoV-Exposed Comment:Recent close contact 07/27/2020 07/27/2020 08/10/2020 1:32 AM EST CoV-Risk 04/28/2021 04/28/2021 05/08/2021 1:23 AM EDT COVID-19 08/01/2021 08/01/2021 08/22/2021 1:23 AM EST CoV-Exposed 12/14/2021 12/16/2021 12/17/2021 4:30 PM EDT CoV-Exposed 12/16/2021 12/17/2021 12/28/2021 1:22 AM EDT documented as of this encounter Care Teams Trial Lawyer Relationship Specialty Start Date End Date Loli Maldonado MD [address] [place] [address] [email or web address] PCP - General Family Medicine 03/06/19 01/21/22 Loli Maldonado MD [address] [place] [address] [email or web address] PCP - General Family Medicine 01/22/22 04/03/22 Loli Maldonado MD [address] [place] [address] [email or web address] PCP - General Family Medicine 04/04/22 01/28/23 Loli Maldonado MD [address] [place] [address] [email or web address] PCP - General Family Medicine 01/29/23 11/20/23 Pcp, Unknown PCP - General 11/21/23 02/14/24 Pcp, Unknown PCP - General 02/15/24 documented as of this encounter Additional Source Comments The information contained in this document represents components of the legal health record. It is not the complete legal health record.[facility]
--- OUTSIDE RECORDS SUMMARY | 2025-05-30 16:46 | XMS_ITS | Encounter Summary ---
Author Organization [facility] Address [address] [facility] [address] [place] [phone] Phone Care Team Providers Care Arboreal Scientist Name Role Phone Loli Maldonado MD Primary Care Provider [phone] Loli Maldonado MD Primary Care Provider Loli Maldonado MD Primary Care Provider Loli Maldonado MD Primary Care Provider Pcp, Unknown Primary Care Provider Unavailabl e Pcp, Unknown Primary Care Provider Unavailabl e Encounter Details Date Type Department Care Team (Late st Contact Info) Description 05/11/2020 Procedure Pass [facility], [address] [address] Social History Tobacco Use Types Packs/Day Years [...] 02/05/2008 02/05/2008 11/06/19 1:21 AM EDT CoV-Risk 07/09/2020 07/09/2020 07/23/2020 1:24 AM EST CoV-Exposed Comment:Recent close contact 07/27/2020 07/27/2020 08/10/2020 1:32 AM EST CoV-Risk 04/28/2021 04/28/2021 05/08/2021 1:23 AM EDT COVID-19 08/01/2021 08/01/2021 08/22/2021 1:2 3 AM EST CoV-Exposed 12/14/2021 12/16/2021 12/17/2021 4:30 PM EDT CoV-Exposed 12/16/2021 12/17/2021 12/28/2021 1:22 AM EDT documented as of this encounter Care Teams Arboreal Scientist Relationship Specialty Start Date End Date Loli Maldonado MD [address] [facility] [place] [address] [email or web address] PCP - General Family Medicine 03/06/19 01/21/22 Loli Maldonado MD [address] [facility] [place] [address] [email or web address] PCP - General Family Medicine 01/22/22 04/03/22 Loli Maldonado MD [address] [place] [address] [email or web address] PCP - General Family Medicine 04/04/22 01/28/23 Loli Maldonado MD [address] [facility] [place] [address] [email or web address] PCP - General Family Medicine 01/29/23 11/20/23 Pcp, Unknown PCP - General 11/21/23 02/14/24 Pcp, Unknown PCP - General 02/15/24 documented as of this encounter Additional Source Comments The information contained in this document represents components of the legal health record. It is not the complete legal health record.[facility]
--- OUTSIDE RECORDS SUMMARY | 2025-05-30 16:46 | XMS_ITS | Encounter Summary ---
Author Organization [facility] Address [address] [facility] [address] [place] [address] Phone Care Team Providers Care Oil And Gas Well Treatment Operator Name Role Phone Loli Maldonado MD Primary Care Provider Loli Maldonado MD Primary Care Provider Pcp, Unknown Primary Care Provider Unavailabl e Pcp, Unknown Primary Care Provider Unavailabl e Encounter Details Date Type Department Care Team (Late st Contact Info) Description 04/18/2022 Procedure Pass [facility], Ct Scan - [facility] [address] [place] [address] Social History Tobacco Use Types Packs/Day Years [...] Date of Assessment Author No Risk Indicated 04/19/2022 5:11 PM EDT Mounika Esquivel RN * [place] Suicide Severity Rating Scale (Screener/Recent Self-Report) Question Answer Date of Assessment Author 1. Wish to be (Past 1 Month) No 022 5:11 PM EDT Mounika Esquivel RN 2. Non-Specific Active Suici kamlesh Thoughts (Past 1 Month) No 04/19/2022 5:11 PM EDT León Esquivel RN 6. Suicidal Behavior (Lifetime) No 5:11 PM EDT Mounika Esquivel RN documented as of this encounter Plan of Treatment Not on file documented as of this encounter Visit Diagnoses Not on filedocumented in this encounter Care Teams Oil And Gas Well Treatment Operator Relationship Specialty Start Date End Date Loli Maldonado MD [address] [place] [address] [email or web address] PCP - General Family Medicine 04/04/22 01/28/23 Loli Maldonado MD [address] [place] [address] PCP - General Family Medicine 01/29/23 11/20/23 Pcp, Unknown PCP - General 11/21/23 02/14/24 Pcp, Unknown PCP - General 02/15/24 documented as of this encounter Additional Source Comments The information contained in this document represents components of the legal health record. It is not the complete legal health record.[facility]
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
--- OUTSIDE RECORDS SUMMARY | 2025-05-30 16:46 | XMS_ITS | Encounter Summary ---
Author Organization [facility] Address [address] [place] [address] Phone Care Team Providers Care Oxygen Therapy Teacher Name Role Phone Loli Maldonado MD Primary Care Provider Loli Maldonado MD Primary Care Provider Loli Maldonado MD Primary Care Provider [phone] Loli Maldonado MD Primary Care Provider Pcp, Unknown Primary Care Provider Unavailabl e Pcp, Unknown Primary Care Provider Unavailabl e Reason for Referral * MRI/CAT Scan - Closed Specialty Diagnoses / Procedures Referred By Neyda tinajero Referred To Contact Radiology Diagnoses Left shoulder pain, unspecified chronicity Procedures MRI Shoulder (Left) Loli Maldonado MD Phone: tel: fax: [email or web address] Referral ID Status Reason Start Date Expiration Date Visits Re quested Visits Authorized [id number] Closed 10/07/2019 10/07/2020 1 1 Encounter Details Date Type Department Care Team (Late st Contact Info) Description 10/07/2019 Ancillary Orders Virtual Department [address] [place] [address] Loli Maldonado MD [address] [place] [id number] Left shoulder pain, unspecified chronicity Social History Tobacco Use [...] encounter Results * MRI SHOULDER WITHOUT CONTRAST (LEFT) (10/14/2019 3:10 PM EST) Anatomical Region Laterality Modality Shoulder Left Magnetic Resonan ce 10/14/2019 3:18 PM EST Impressions 10/14/2019 3:24 PM EST 1. Rotator cuff tendinopathy. 2. Mild AC joint osteoarthritis, acromial morphology and spur contributing to rotator cuff impingement. POS - [id number] Narrative 10/14/2019 3:24 PM EST HISTORY: Left shoulder pain, unspecified chronicity,pain and reduced ROM in left shoulder x months. worsening COMPARISON: None. TECHNIQUE: Exam performed on a 1.5 Tali high-field MRI scanner. Axial T1 and proton density with fat suppression, oblique coronal proton density with fat suppression and T2 with fat suppression, oblique sagittal T1 and T2 with fat suppression sequences were obtained. MRI LEFT SHOULDER FINDINGS: Acromion: No os acromiale. Type II acromion. There is mild anterior and lateral downsloping with a small inferior projecting acromial osteophyte causing mild mass-effect upon the supraspinatus tendon. Rotator cuff muscle/tendon: Intermediate signal intensity in the supraspinatus infraspinatus tendons representing tendinopathy. No tear. Subscapularis tendon is intact. No rotator cuff muscle edema or atrophy. Labrum/biceps tendon: No labral or biceps tendon tear. Bone marrow/joint: Mild acromioclavicular joint space narrowing. Glenohumeral joint spaces preserved. No malalignment. No bone marrow edema or bone lesions. No joint effusion or bursal fluid collections. No suprascapular or spinoglenoid notch mass. Procedure Note Andres Schaffer MD - 10/14/2019 HISTORY: Left shoulder pain, unspecified chronicity,pain and reduced ROMin left shoulder x months. worsening COMPARISON: None. TECHNIQUE: Exam performed on a 1.5 Tali high-field MRI scanner. Axial T1and proton density with fat suppression, oblique coronal proton densitywith fat suppression and T2 with fat suppression, oblique sagittal T1 andT2 with fat suppression sequences were obtained. MRI LEFT SHOULDER FINDINGS: Acromion: No os acromiale. Type II acromion. There is mild anterior andlateral downsloping with a small inferior projecting acromial osteophytecausing mild mass-effect upon the supraspinatus tendon. Rotator cuff muscle/tendon: Intermediate signal intensity in thesupraspinatus infraspinatus tendons representing tendinopathy. No tear.Subscapularis tendon is intact. No rotator cuff muscle edema oratrophy. Labrum/biceps tendon: No labral or biceps tendon tear. Bone marrow/joint: Mild acromioclavicular joint space narrowing.Glenohumeral joint spaces preserved. No malalignment. No bone marrowedema or bone lesions. No joint effusion or bursal fluid collections. Nosuprascapular or spinoglenoid notch mass. IMPRESSION: 1. Rotator cuff tendinopathy. 2. Mild AC joint osteoarthritis, acromial morphology and spurcontributing to rotator cuff impingement. 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/05/2021 per Infection Control as part of historical infection status reconciliation 02/05/2008 02/05/2008 11/06/19 22 1:21 AM EDT CoV-Risk 12/16/2019 12/16/2019 12/30/2019 [...] documented as of this encounter Care Teams Oxygen Therapy Teacher Relationship Specialty Start Date End Date Loli Maldonado MD [address] [place] [address] [email or web address] PCP - General Family Medicine 03/06/19 01/21/22 Loli Maldonado MD [address] [place] [address] [email or web address] PCP - General Family Medicine 01/22/22 04/03/22 Loli Maldonado MD [address] [place] [address] [email or web address] PCP - General Family Medicine 04/04/22 01/28/23 Loli Maldonado MD [address] [facility] [place] [address] PCP - General Family Medicine 01/29/23 11/20/23 Pcp, Unknown PCP - General 11/21/23 02/14/24 Pcp, Unknown PCP - General 02/15/24 documented as of this encounter Additional Source Comments The information contained in this document represents components of the legal health record. It is not the complete legal health record.[facility]
--- OUTSIDE RECORDS SUMMARY | 2025-05-30 16:46 | XMS_ITS | Encounter Summary ---
Author Organization [facility] Address [address] [place] [address] Phone Care Team Providers Care Machine Packaging Technician Name Role Phone Loli Maldonado MD Primary Care Provider [phone] Loli Maldonado MD Primary Care Provider [phone] Pcp, Unknown Primary Care Provider Unavailabl e Pcp, Unknown Primary Care Provider Unavailabl e Encounter Details Date Type Department Care Team (Late st Contact Info) Description 06/30/2022 Procedure Pass [facility], Ct Scan - [facility] [address] [place] [address] Social History Tobacco Use Types Packs/Day Years [...] Date of Assessment Author No Risk Indicated 06/30/2022 8:29 PM Kayla Quevedo RN * Bennett Suicide Severity Rating Scale (Screener/Recent Self-Report) Question Answer Date of Assessment Author 1. Wish to be (Past 1 Month) No 06/30/2022 8:29 PM Meghan Devine RN 2. Non-Specific Active Suicidal Thoughts (Past 1 Month) No 06/30/2022 8:29 PM Meghan Devine RN 6. Suicidal Behavior (Lifetime) No 06/30/2022 8:29 PM Meghan Devine RN documented as of this encounter Plan of Treatment Not on file documented as of this encounter Visit Diagnoses Not on filedocumented in this encounter Care Teams Machine Packaging Technician Relationship Specialty Start Date End Date Loli Maldonado MD [address] [place] [address] [email or web address] PCP - General Family Medicine 04/04/22 01/28/23 Loli Maldonado MD [address] [place] [address] PCP - General Family Medicine 01/29/23 11/20/23 Pcp, Unknown PCP - General 11/21/23 02/14/24 Pcp, Unknown PCP - General 02/15/24 documented as of this encounter Additional Source Comments The information contained in this document represents components of the legal health record. It is not the complete legal health record.[facility]
--- OUTSIDE RECORDS SUMMARY | 2025-05-30 16:46 | XMS_ITS | Encounter Summary ---
Author Organization [facility] Address [address] [facility] [address] [place] [address] Phone Care Team Providers Care Extension Professor Name Role Phone Loli Maldonado MD Primary Care Provider Loli Maldonado MD Primary Care Provider [phone] Loli Maldonado MD Primary Care Provider Loli Maldonado MD Primary Care Provider Pcp, Unknown Primary Care Provider Unavailabl e Pcp, Unknown Primary Care Provider Unavailabl e Reason for Referral * MRI/CAT Scan - Closed Specialty Diagnoses / Procedures Referred By Neyda tinajero Referred To Contact Radiology Diagnoses RLQ abdominal pain Diarrhea, unspecified type Procedures CT Abdomen/Pelvis Loli Maldonado MD Phone: tel: fax: [email or web address] Referral ID Status Reason Start Date Expiration Date Visits Re quested Visits Authorized [id number] Closed 02/25/2020 08/23/2020 1 1 Encounter Details Date Type Department Care Team (Late st Contact Info) Description 02/24/2020 Transcribe Orders Virtual Department 30 [place] [address] Loli Maldonado MD [address] [place] [address] (work) [email or web address] RLQ abdominal pain (Primary Dx); Diarrhea, unspecified type Social History Tobacco Use Types Packs/Day Years [...] documented as of this encounter Results * CT ABDOMEN/PELVIS WITH CONTRAST (02/26/2020 3:13 PM EDT) Anatomical Region Laterality Modality Abdomen, Pelvis Computed Tomogra phy 02/26/2020 3:18 PM EDT Impressions 02/26/2020 3:34 PM EDT 1.No evidence of appendicitis or colitis. No findings to account for the patient's right lower quadrant pain and diarrhea. 2.Bladder under distention versus cystitis. 3.New indeterminate 1.1 cm right hepatic lobe lesion. This may represent an incidental a 9 hemangioma. Follow-up MRI of the liver is recommended. 4.Additional findings as above. Narrative 02/26/2020 3:34 PM EDT COMPARISON: 08/09/2019 and as far back as 06/12/2007 TECHNIQUE: CT abdomen and pelvis with IV and oral contrast. Multiplanar reformatted images generated. Automated exposure control utilized. CT ABDOMEN AND PELVIS FINDINGS: Lung bases/heart: Stable top normal cardiac size. No pericardial effusion. Dependent atelectasis. Spleen: Normal. Liver: No acute findings. There is a new subtle ill-defined hypodensity in the peripheral right hepatic lobe/segment VIII (measuring 1.1 x 0.8 cm) Gallbladder/biliary tree: Normal. Pancreas: Stable incidental focal fatty infiltration in the head and uncinate process. Otherwise unremarkable. Adrenal glands: Normal. Vasculature: No AAA or acute findings. Genitourinary: Stable too small to characterize hypodensity in the left lower renal pole which may represent an incidental cyst or angiomyolipoma. No acute renal findings. Bladder is nondistended. This mild uniform bladder wall thickening which may be due to under distention or cystitis in the appropriate clinical setting. Borderline prostatomegaly. Gastrointestinal tract: Stomach and small bowel are normal. Mild sigmoid colon diverticulosis. No diverticulitis. Normal appendix. Peritoneum/retroperitoneum: No enlarged lymph nodes, ascites or fluid collections. Musculoskeletal: Chronic small fat-containing umbilical hernia. Chronic mild L1 anterior wedge compression fracture and mild L5-S1 disc disease. No new compression fractures or destructive/suspicious bone lesions. Procedure Note Evan Galeana MD - 02/26/2020 COMPARISON: 08/09/2019 and as far back as 06/12/2007 TECHNIQUE: CT abdomen and pelvis with IV and oral contrast. Multiplanarreformatted images generated. Automated exposure control utilized. CT ABDOMEN AND PELVIS FINDINGS: Lung bases/heart: Stable top normal cardiac size. No pericardial effusion.Dependent atelectasis. Spleen: Normal. Liver: No acute findings. There is a new subtle ill-defined hypodensity inthe peripheral right hepatic lobe/segment VIII (measuring 1.1 x 0.8 cm) Gallbladder/biliary tree: Normal. Pancreas: Stable incidental focal fatty infiltration in the head anduncinate process. Otherwise unremarkable. Adrenal glands: Normal. Vasculature: No AAA or acute findings. Genitourinary: Stable too small to characterize hypodensity in the leftlower renal pole which may represent an incidental cyst or angiomyolipoma.No acute renal findings. Bladder is nondistended. This mild uniformbladder wall thickening which may be due to under distention or cystitisin the appropriate clinical setting. Borderline prostatomegaly. Gastrointestinal tract: Stomach and small bowel are normal. Mild sigmoidcolon diverticulosis. No diverticulitis. Normal appendix. Peritoneum/retroperitoneum: No enlarged lymph nodes, ascites or fluidcollections. Musculoskeletal: Chronic small fat-containing umbilical hernia. Chronicmild L1 anterior wedge compression fracture and mild L5-S1 disc disease.No new compression fractures or destructive/suspicious bone lesions. IMPRESSION: 1.No evidence of appendicitis or colitis. No findings to account for thepatient's right lower quadrant pain and diarrhea. 2.Bladder under distention versus cystitis. 3.New indeterminate 1.1 cm right hepatic lobe lesion. This may representan incidental a 9 hemangioma. Follow-up MRI of the liver is recommended. 4.Additional findings as above. Loli Maldonado MD IMG CT ABD/PELVIS Final Resu lt documented in this encounter Visit Diagnoses Diagnosis RLQ abdominal pain- Primary Abdominal pain, right lower quadrant Diarrhea, unspecified type RLQ abdominal pain Abdominal pain, right lower quadrant Diarrhea, unspecified type documented in this encounter Additional Health Concerns [...] documented as of this encounter Care Teams Extension Professor Relationship Specialty Start Date End Date Loli Maldonado MD [address] [place] [address] [email or web address] PCP - General Family Medicine 03/06/19 01/21/22 Loli Maldonado MD [address] [place] [address] [email or web address] PCP - General Family Medicine 01/22/22 04/03/22 Loli Maldonado MD [address] [place] [address] PCP - General Family Medicine 04/04/22 01/28/23 Loli Maldonado MD [address] [place] [address] PCP - General Family Medicine 01/29/23 11/20/23 Pcp, Unknown PCP - General 11/21/23 02/14/24 Pcp, Unknown PCP - General 02/15/24 documented as of this encounter Additional Source Comments The information contained in this document represents components of the legal health record. It is not the complete legal health record.[facility]
--- OUTSIDE RECORDS SUMMARY | 2025-05-30 16:46 | XMS_ITS | Encounter Summary ---
Author Organization [facility] Address [address] [facility] [address] [place] [address] Phone Care Team Providers Care Molecular Technologist Name Role Phone Loli Maldonado MD Primary Care Provider [phone] Loli Maldonado MD Primary Care Provider Loli Maldonado MD Primary Care Provider Loli Maldonado MD Primary Care Provider Pcp, Unknown Primary Care Provider Unavailabl e Pcp, Unknown Primary Care Provider Unavailabl e Encounter Details Date Type Department Care Team (Late st Contact Info) Description 06/27/2021 Transcribe Orders [facility] Specimen Processing 30 [place] [address] Jose C Valverde MD [address] [facility] [place] [address] [email or web address] Social History Tobacco Use Types Packs/Day Years [...] documented as of this encounter Care Teams Molecular Technologist Relationship Specialty Start Date End Date Loli Maldonado MD [address] [facility] [place] [address] [email or web address] PCP - General Family Medicine 03/06/19 01/21/22 Loli Maldonado MD 70 [facility] [place] [address] [email or web address] PCP - General Family Medicine 01/22/22 04/03/22 Loli Maldonado MD [address] [place] [address] PCP - General Family Medicine 04/04/22 01/28/23 Loli Maldonado MD [address] [facility] [place] [address] [email or web address] PCP - General Family Medicine 01/29/23 11/20/23 Pcp, Unknown PCP - General 11/21/23 02/14/24 Pcp, Unknown PCP - General 02/15/24 documented as of this encounter Additional Source Comments The information contained in this document represents components of the legal health record. It is not the complete legal health record.[facility]
--- OUTSIDE RECORDS SUMMARY | 2025-05-30 16:46 | XMS_ITS | Encounter Summary ---
Author Organization [facility] Address [address] [facility] [address] [place] [address] Phone Care Team Providers Care Punch Operator Name Role Phone Loli Maldonado MD Primary Care Provider [phone] Loli Maldonado MD Primary Care Provider [phone] Pcp, Unknown Primary Care Provider Unavailabl e Pcp, Unknown Primary Care Provider Unavailabl e Encounter Details Date Type Department Care Team (Late st Contact Info) Description 06/18/2022 Procedure Pass [facility], Ct Scan - [facility] [address] [place] [address] Social History Tobacco Use Types Packs/Day Years [...] 8:20 PM EDT Leona Flores RN * [place] Suicide Severity Rating Scale (Screener/Recent Self-Report) Question [...] on filedocumented in this encounter Care Teams Punch Operator Relationship Specialty Start Date End Date Loli Maldonado MD [address] [place] [address] PCP - General Family Medicine 04/04/22 01/28/23 Loli Maldonado MD 70 [place] [address] PCP - General Family Medicine 01/29/23 11/20/23 Pcp, Unknown PCP - General 11/21/23 02/14/24 Pcp, Unknown PCP - General 02/15/24 documented as of this encounter Additional Source Comments The information contained in this document represents components of the legal health record. It is not the complete legal health record.[facility]
--- OUTSIDE RECORDS SUMMARY | 2025-05-30 16:46 | XMS_ITS | Encounter Summary ---
Author Organization [facility] Address [address] [facility] [address] [place] [address] Phone Care Team Providers Care Downstream Biomanufacturing Technician Name Role Phone Loli Maldonado MD Primary Care Provider Loli Maldonado MD Primary Care Provider [phone] Loli Maldonado MD Primary Care Provider Loli Maldonado MD Primary Care Provider Pcp, Unknown Primary Care Provider Unavailabl e Pcp, Unknown Primary Care Provider Unavailabl e Encounter Details Date Type Department Care Team (Late st Contact Info) Description 02/24/2020 Procedure Pass [facility], Ct Scan - [address] [address] Social History Tobacco Use Types Packs/Day Years [...] documented as of this encounter Care Teams Downstream Biomanufacturing Technician Relationship Specialty Start Date End Date Loli Maldonado MD [address] [facility] [place] [address] [email or web address] PCP - General Family Medicine 03/06/19 01/21/22 Loli Maldonado MD [address] [facility] [place] [address] [email or web address] PCP - General Family Medicine 01/22/22 04/03/22 Loli Maldonado MD 70 [place] [address] [email or web address] PCP - General Family Medicine 04/04/22 01/28/23 Loli Maldonado MD 70 [place] [address] [email or web address] PCP - General Family Medicine 01/29/23 11/20/23 Pcp, Unknown PCP - General 11/21/23 02/14/24 Pcp, Unknown PCP - General 02/15/24 documented as of this encounter Additional Source Comments The information contained in this document represents components of the legal health record. It is not the complete legal health record.[facility]
--- OUTSIDE RECORDS SUMMARY | 2025-05-30 16:46 | XMS_ITS | Encounter Summary ---
Author Organization [facility] Address [address] [facility] [address] [place] [address] Phone Care Team Providers Care Seafood Process Worker Name Role Phone Loli Maldonado MD Primary Care Provider Loli Maldonado MD Primary Care Provider Loli Maldonado MD Primary Care Provider [phone] Loli Maldonado MD Primary Care Provider Pcp, Unknown Primary Care Provider Unavailabl e Pcp, Unknown Primary Care Provider Unavailabl e Encounter Details Date Type Department Care Team (Late st Contact Info) Description 01/24/2021 Procedure Pass [address] [place] [address] Social History Tobacco Use Types Packs/Day Years [...] documented as of this encounter Care Teams Seafood Process Worker Relationship Specialty Start Date End Date Loli Maldonado MD [address] [place] [address] [email or web address] PCP - General Family Medicine 03/06/19 01/21/22 Loli Maldonado MD [address] [place] [address] [email or web address] PCP - General Family Medicine 01/22/22 04/03/22 Loli Maldoando MD [address] [place] [address] [email or web address] PCP - General Family Medicine 04/04/22 01/28/23 Loli Maldonado MD 70 [place] [address] [email or web address] PCP - General Family Medicine 01/29/23 11/20/23 Pcp, Unknown PCP - General 11/21/23 02/14/24 Pcp, Unknown PCP - General 02/15/24 documented as of this encounter Additional Source Comments The information contained in this document represents components of the legal health record. It is not the complete legal health record.[facility]
--- OUTSIDE RECORDS SUMMARY | 2025-05-30 16:46 | XMS_ITS | Encounter Summary ---
Author Organization [facility] Address [address] [facility] [address] [place] [address] Phone Care Team Providers Care Parachutist/Combatant Diver Qualified Name Role Phone Loli Maldonado MD Primary Care Provider [phone] Loli Maldonado MD Primary Care Provider [phone] Pcp, Unknown Primary Care Provider Unavailabl e Pcp, Unknown Primary Care Provider Unavailabl e Encounter Details Date Type Department Care Team (Late st Contact Info) Description 06/30/2022 Procedure Pass [facility], Ct Scan - [facility] 30 [place] [address] Social History Tobacco Use Types Packs/Day Years [...] 06/30/2022 8:29 PM Kayla Quevedo RN * [place] Suicide Severity Rating Scale (Screener/Recent Self-Report) Question [...] on filedocumented in this encounter Care Teams Parachutist/Combatant Diver Qualified Relationship Specialty Start Date End Date Loli Maldonado MD 70 [place] [address] PCP - General Family Medicine 04/04/22 01/28/23 Loli Maldonado MD 70 [place] [address] PCP - General Family Medicine 01/29/23 11/20/23 Pcp, Unknown PCP - General 11/21/23 02/14/24 Pcp, Unknown PCP - General 02/15/24 documented as of this encounter Additional Source Comments The information contained in this document represents components of the legal health record. It is not the complete legal health record.[facility]
--- OUTSIDE RECORDS SUMMARY | 2025-05-30 16:46 | XMS_ITS | Encounter Summary ---
Author Organization [facility] Address [address] [facility] [address] [place] [address] Phone Care Team Providers Care Stonemason Apprentice Name Role Phone Loli Maldonado MD Primary Care Provider Loli Maldonado MD Primary Care Provider Loli Maldonado MD Primary Care Provider Loli Maldonado MD Primary Care Provider Pcp, Unknown Primary Care Provider Unavailabl e Pcp, Unknown Primary Care Provider Unavailabl e Encounter Details Date Type Department Care Team (Late st Contact Info) Description 07/26/2020 Procedure Pass [facility], [address] [address] Social History Tobacco Use Types Packs/Day Years [...] 02/05/2008 02/05/2008 11/06/19 22 1:21 AM EDT CoV-Exposed Comment:Recent close contact 07/27/2020 07/27/2020 08/10/2020 1:32 AM EST CoV-Risk 04/28/2021 04/28/2021 05/08/2021 1:23 AM EDT COVID-19 08/01/2021 08/01/2021 08/22/2021 1:23 AM EST CoV-Exposed 12/14/2021 12/16/2021 12/17/2021 4:30 PM EDT CoV-Exposed 12/16/2021 12/17/2021 12/28/2021 1:22 AM EDT documented as of this encounter Care Teams Stonemason Apprentice Relationship Specialty Start Date End Date Loli Maldonado MD [address] [place] [address] [email or web address] PCP - General Family Medicine 03/06/19 01/21/22 Loli Maldonado MD [address] [facility] [place] [address] [email or web address] PCP - General Family Medicine 01/22/22 04/03/22 Loli Maldonado MD [address] [facility] [place] [address] [email or web address] PCP - General Family Medicine 04/04/22 01/28/23 Loli Maldonado MD [address] [facility] [place] [address] [email or web address] PCP - General Family Medicine 01/29/23 11/20/23 Pcp, Unknown PCP - General 11/21/23 02/14/24 Pcp, Unknown PCP - General 02/15/24 documented as of this encounter Additional Source Comments The information contained in this document represents components of the legal health record. It is not the complete legal health record.[facility]
--- OUTSIDE RECORDS SUMMARY | 2025-05-30 16:46 | XMS_ITS | Encounter Summary ---
Author Organization [facility] Address [address] [facility] [address] [place] [address] Phone Care Team Providers Care Senior Software Systems Engineer Name Role Phone Loli Maldonado MD Primary Care Provider Loli Maldonado MD Primary Care Provider Loli Maldonado MD Primary Care Provider Loli Maldonado MD Primary Care Provider Pcp, Unknown Primary Care Provider Unavailabl e Pcp, Unknown Primary Care Provider Unavailabl e Encounter Details Date Type Department Care Team (Late st Contact Info) Description 03/30/2020 Ancillary Orders Virtual Department 30 [place] [address] Loli Maldonado MD [address] [place] [address] [email or web address] Other specified diseases of liver Social History Tobacco Use Types Packs/Day Years [...] as of this encounter Visit Diagnoses Diagnosis Other specified diseases of liver documented in this encounter Additional Health Concerns [...] documented as of this encounter Care Teams Senior Software Systems Engineer Relationship Specialty Start Date End Date Loli Maldonado MD [address] [place] [address] [email or web address] PCP - General Family Medicine 03/06/19 01/21/22 Loli Maldonado MD [address] [place] [address] [email or web address] PCP - General Family Medicine 01/22/22 04/03/22 Loli Maldonado MD [address] [place] [address] [email or web address] PCP - General Family Medicine 04/04/22 01/28/23 Loli Maldonado MD [address] [place] [address] [email or web address] PCP - General Family Medicine 01/29/23 11/20/23 Pcp, Unknown PCP - General 11/21/23 02/14/24 Pcp, Unknown PCP - General 02/15/24 documented as of this encounter Additional Source Comments The information contained in this document represents components of the legal health record. It is not the complete legal health record.[facility]
--- OUTSIDE RECORDS SUMMARY | 2025-05-30 16:46 | XMS_ITS | Clinical Summary ---
Author Organization [employer] Address [address] [facility] [address] [place] [address] Care Team Providers Care Risk Management Specialist Name Role Phone Loli Maldonado MD Primary Care Provider [phone] Allergies Active Allergy Reactions Criticality Noted Date Comments Clonidine Hcl 11/21/2022 Other reaction(s): Unknown Morphine 11/21/2022 Other reaction(s): Unknown Medications * This document contains information received from the source organization and may not represent a complete record from that organization. hydrOXYzine HCl (Atarax) 50 MG tabletIndicatio ns:Mood disorder (CMS/HCC) Take 1 tablet (50 mg) by mouth 2 times daily. 60 tablet 03/13/2023 Active acetaminophen-c odeine (Tylenol w/ Codeine #3) 300-30 MG tabletIndicatio ns:Chronic bilateral low back pain without sciatica Take 1 tablet by mouth every 6 (six) hours if needed for severe pain. Take 1 tablet by mouth if needed in the morning, at noon, and at bedtime for severe pain for up to 10 days. 20 tablet 11/26/2023 Active buPROPion SR (Wellbutrin SR) 150 MG 12 hr tabletIndicatio ns:Major depressive disorder, recurrent episode with atypical features (CMS/HCC) Take 1 tablet (150 mg) by mouth 2 times daily. 180 tablet 3 11/26/2023 Active doxepin (SINEquan) 10 MG capsuleIndicati ons:Primary insomnia Take 1 capsule (10 mg) by mouth at bedtime. TAKE ONE CAPSULE (10MG ) BY MOUTH AT BEDTIME 90 capsule 3 11/26/2023 Active gabapentin (Neurontin) 600 MG tabletIndicatio ns:Chronic pain due to trauma Take 1 tablet (600 mg) by mouth in the morning. 90 tablet 11/26/2023 Active pantoprazole (ProtoNix) 40 MG EC tabletIndicatio ns:Anxiety Take 1 tablet (40 mg) by mouth before breakfast. 90 tablet 3 11/26/2023 Active rOPINIRole (Requip) 0.5 MG tabletIndicatio ns:Restless Leg Syndrome Take 1 tablet (0.5 mg) by mouth in the morning. 90 tablet 3 11/26/2023 Active sertraline (Zoloft) 100 MG tabletIndicatio ns:Major depressive disorder, recurrent episode with atypical features ([facility]/HCC) Take 1 tablet (100 mg) by mouth in the morning. 90 tablet 3 11/26/2023 Active tiZANidine (Zanaflex) 4 MG capsuleIndicati ons:Chronic bilateral low back pain without sciatica Take 1 capsule (4 mg) by mouth 3 times daily. 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 Intermittent explosive disorder 12/11/2022 Lipoma of forehead 12/11/2022 Major depressive disorder, r ecurrent episode with atypical features 12/11/2022 Mood disorder 12/11/2022 Primary insomnia 12/11/2022 Restless leg syndrome 12/11/2022 Sheltered homelessness 12/11/2022 Periodontal disease 11/23/2022 Dental caries 11/21/2022 Dental abscess 11/21/2022 Family History Medical History Relation Name Comments Addiction problem Brother cocaine ov erdose Mental illness Father Mental illness Mother No Known Problems Sister Relation Name Status Comments Brother Father Mother Sister Social History Tobacco Use Types Packs/Day Years Used Date Smoking Tobacco: Former Cigarettes Smokeless Tobacco: Former Tobacco Cessation:Counseling Given: Not Answered Alcohol Use Standard Drinks/Week Comments Not Currently 0 (1 standard drink = 0.6 oz pur e alcohol) Sex and Gender Information Value Date Recorded Sex Assigned at Male 07/26/2022 10:57 PM EST Legal Sex Male 8:35 PM EDT Gender Identity Male 11/21/2022 9:56 AM EDT Sexual Orientation Choose not to disclose 2022 9:56 AM EDT Last Filed Vital Signs Vital Sign Reading Time Taken Comments Blood Pressure 130/85 11/21/2022 1:15 PM EDT Pulse 73 11/21/2022 1:15 PM EDT Temperature - - Respiratory Rate - - Oxygen Saturation 97% 03/10/2022 12:00 PM EDT Inhaled Oxygen Concentration - - Weight 81.6 kg (180 lb) 03/10/2022 12:00 PM EDT Height - - Body Mass Index - - Plan of Treatment Health Maintenance Due Date Last Done Comments Anal Pap 1979 CT Colonography 1979 Colonoscopy 1979 Colorectal Cancer Screening 1979 Dental Oral Exam 1979 Dental Prophylaxis 1979 Dental X-Ray: Bitewings 1979 Dental X-Ray: Full Mouth 1979 Depression Screening 1979 FIT DNA/Cologuard 1979 FIT 1979 FOBT 1979 HIV Screening 1979 SDOH Screening 1979 Sigmoidoscopy 1979 Disability Screening 1979 Alcohol/Substance Use Screening 1991 Family Planning (PISQ) 1994 Hepatitis C Screening 1997 Hepatitis A Vaccines (1 of 2 - Risk 2-dose series) 1998 Hepatitis B Vaccines (1 of 3 - 19+ 3-dose series) 1998 Pneumococcal Vaccine: Pediat rics (0 to 5 Years) and At-Risk Patients (6 to 49) Years (1 of 2 - PCV) 1998 Tobacco Screening 11/24/2023 11/23/2022 COVID-19 Vaccine ( - 2023-2 5 season) 2025 Influenza Vaccine (#1) 2025 Lipid Panel 03/07/2027 03/07/2022 Zoster Vaccines (1 of 2) 2029 DTaP/Tdap/Td Vaccines (2 - T d or Tdap) 02/19/2029 02/19/2019 RSV Patients and Pa tients Aged 60 years or older (1 - 1-dose 75+ series) 2054 HIB Vaccines Aged Out No longer eligi ble based on patient's age to complete this topic HPV Vaccines Aged Out No longer eligi ble based on patient's age to complete this topic IPV Vaccines Aged Out No longer eligi ble based on patient's age to complete this topic Meningococcal B Vaccine Aged Out No l onger eligible based on patient's age to complete this topic Meningococcal Vaccine Aged Out No gayathri rosalio eligible based on patient's age to complete this topic RSV under 20 months Aged Out No longe r eligible based on patient's age to complete this topic Rotavirus Vaccines Aged Out No longer eligible based on patient's age to complete this topic Insurance [facility] C3 DENTAL-[facility] MEDICAID STAND ADULT Care Teams Risk Management Specialist Relationship Specialty Start Date End Date Loli Maldonado MD [address] [place] [id number] PCP - General Family Medicine 12/11/22
--- OUTSIDE RECORDS SUMMARY | 2025-05-30 16:46 | XMS_ITS | Encounter Summary ---
Author Organization [facility] Address [address] [place] [phone] Phone Care Team Providers Care Electrical Maintenance Supervisor Name Role Phone Loli Maldonado MD Primary Care Provider [phone] Loli Maldonado MD Primary Care Provider Pcp, Unknown Primary Care Provider Unavailabl e Pcp, Unknown Primary Care Provider Unavailabl e Encounter Details Date Type Department Care Team (Late st Contact Info) Description 04/18/2022 Procedure [facility], Ct Scan - [facility] [address] [place] [address] Social History Tobacco Use Types Packs/Day Years [...] 5:11 PM EDT Mounika Esquivel RN * [place] Suicide Severity Rating Scale (Screener/Recent Self-Report) Question [...] on filedocumented in this encounter Care Teams Electrical Maintenance Supervisor Relationship Specialty Start Date End Date Loli Maldonado MD [address] [place] [address] [email or web address] PCP - General Family Medicine 04/04/22 01/28/23 Loli Maldonado MD [address] [place] [address] PCP - General Family Medicine 01/29/23 11/20/23 Pcp, Unknown PCP - General 11/21/23 02/14/24 Pcp, Unknown PCP - General 02/15/24 documented as of this encounter Additional Source Comments The information contained in this document represents components of the legal health record. It is not the complete legal health record.[facility]
[2025-05-30 16:57] VITALS: BP 128/83; PULSE 91; RESP 18; TEMP 36.6; O2SAT 95
== END 2025-05-30 16:58 | disposition home or self-care (01) ==
PROVIDERS: Emergency Provider Emergency Medicine
DX: M25.512 Pain in left shoulder (principal); F17.210 Nicotine dependence, cigarettes, uncomplicated
CPT/HCPCS: 73060; 73090; 96372; 99283; 99284; J1885

== ENCOUNTER → 2025-05-30 15:30 | Outpatient (BNV) | payer MEDICAID, SELFPAY | PROVIDERS: Emergency Provider Emergency Medicine; Visit Provider Radiology Diagnostic Radiology | DX: M79.622 Pain in left upper arm (principal); M79.632 Pain in left forearm | CPT/HCPCS: 73060; 73090 ==